=== PATIENT | male | born 1955 | race Caucasian/White ===

== ENCOUNTER 2021-02-16 15:14 | Outpatient (REF) | payer OTHER, SELFPAY ==
[2021-02-16 16:53] LABS: Creatinine Urine 127.59 mg/dL; Microalbumin Urine < 5.0 mg/L
[2021-02-16 16:58] LABS: Alanine Aminotransferase 42 U/L (0-40); Albumin Level 4.1 g/dL (3.5-5.0); Alkaline Phosphatase 88 U/L (39-117); Anion Gap 15 (12-20); Aspartate Amino Transferase 22 U/L (5-37); Bilirubin Total 0.6 mg/dL (0.0-1.0); Blood Urea Nitrogen 26 mg/dL (9-16); Calcium 8.7 mg/dL (8.4-10.2); Carbon Dioxide 24 mmol/L (22-29); Chloride 105 mmol/L (96-108); Estimated Glomerular Filt Rate > 60; Glucose Random 230 mg/dL (60-115); Sodium 140 mmol/L (135-145); Total Protein 6.7 g/dL (6.5-8.0)
== END 2021-02-16 15:15 | disposition home or self-care (01) ==
LOC: HO.HMGCLDS 15:14
PROVIDERS: PCP Family Medicine; Visit Provider Family Medicine
DX: E11.9 Type 2 diabetes mellitus without complications (principal)
CPT/HCPCS: 36415; 80053; 82043

== ENCOUNTER 2021-02-17 14:14 | Outpatient (REF) | payer OTHER, SELFPAY ==
--- NOTE | ~2021-02-17 | XR_ITS ---
EXAMINATION: XR CHEST CLINICAL INFORMATION: Other specified symptoms and signs involving the chest COMPARISON: Previous chest x-ray and chest CT January 2015 TECHNIQUE: 2 views of the chest were obtained. FINDINGS: The cardiac and mediastinal contours are stable. The lungs are clear. There is no pleural effusion or pneumothorax. Bony structures are unremarkable. XR/XR chest 2V IMPRESSION: No evidence for acute disease in the chest.
[2021-02-17 15:09] LABS: Cholesterol 127 mg/dL; HDL Cholesterol 29 mg/dL; LDL Cholesterol Calculated 44 mg/dl; Triglycerides 270 mg/dL
[2021-02-17 15:33] LABS: Prostate Specific Antigen Scr 1.36 ng/mL (<0.05-4.0)
[2021-02-18 08:07] LABS: LDL Cholesterol Direct 79 mg/dL (<100)
== END 2021-02-17 14:15 | disposition home or self-care (01) ==
LOC: HO.LAB 14:14
PROVIDERS: PCP Family Medicine; Visit Provider Family Medicine
DX: Z00.00 Encounter for general adult medical examination without abnormal findings (principal); Z12.5 Encounter for screening for malignant neoplasm of prostate; E11.9 Type 2 diabetes mellitus without complications; R09.89 Other specified symptoms and signs involving the circulatory and respiratory systems
CPT/HCPCS: 36415; 71046; 80061; 83721; 84153

== ENCOUNTER 2021-09-04 09:06 | Outpatient (REF) | payer OTHER, SELFPAY ==
[2021-09-04 12:22] LABS: Estimated Average Glucose 154 mg/dL
== END 2021-09-04 09:07 | disposition home or self-care (01) ==
LOC: HO.WFDLDS 09:06
PROVIDERS: Visit Provider Family Medicine
DX: R73.01 Impaired fasting glucose (principal)
CPT/HCPCS: 36415; 83036

== ENCOUNTER 2022-03-14 07:33 | Outpatient (REF) | payer MEDICARE, SELFPAY ==
[2022-03-14 08:55] LABS: Alanine Aminotransferase 34 U/L (0-40); Alkaline Phosphatase 89 U/L (39-117); Anion Gap 13 (12-20); Aspartate Amino Transferase 30 U/L (5-37); Bilirubin Total 0.7 mg/dL (0.0-1.0); Blood Urea Nitrogen 26 mg/dL (9-16); Calcium 9.3 mg/dL (8.4-10.2); Carbon Dioxide 26 mmol/L (22-29); Chloride 102 mmol/L (96-108); Cholesterol 128 mg/dL; Estimated Glomerular Filt Rate > 60; Glucose Fasting 171 mg/dL (60-99); HDL Cholesterol 27 mg/dL; LDL Cholesterol Calculated 75 mg/dl; Potassium 3.9 mmol/L (3.3-5.1); Sodium 137 mmol/L (135-145); Total Protein 6.5 g/dL (6.5-8.0); Triglycerides 133 mg/dL
[2022-03-14 09:15] LABS: Appearance Urine CLEAR; Color Urine YELLOW; Glucose Urine UA NEG (NEG); Leukocyte Esterase Urine NEG (NEG); Nitrite Urine NEG (NEG); Urine Blood NEG (NEG); Urine Ketones NEG (NEG); Urine Protein NEG (NEG-TRACE)
[2022-03-14 09:18] LABS: Prostate Specific Antigen Scr 1.99 ng/mL (<0.05-4.0)
[2022-03-14 09:50] LABS: Creatinine Urine 83.16 mg/dL; Microalbum/Creatinine Ratio Ur 10.8 ug/mg cr
== END 2022-03-14 07:34 | disposition home or self-care (01) ==
LOC: HO.LAB 07:33
PROVIDERS: PCP Family Medicine; Visit Provider Family Medicine
DX: Z00.00 Encounter for general adult medical examination without abnormal findings (principal); Z12.5 Encounter for screening for malignant neoplasm of prostate; I10 Essential (primary) hypertension
CPT/HCPCS: 36415; 80053; 80061; 81003; 82043; 84153; 84443

== ENCOUNTER 2022-04-16 07:08 | Outpatient (REF) | payer MEDICARE, SELFPAY ==
[2022-04-16 08:13] LABS: Cholesterol 162 mg/dL; HDL Cholesterol 32 mg/dL; LDL Cholesterol Calculated 96 mg/dl; Triglycerides 174 mg/dL
== END 2022-04-16 07:09 | disposition home or self-care (01) ==
LOC: HO.LAB 07:08
PROVIDERS: PCP Family Medicine; Visit Provider Family Medicine
DX: Z00.00 Encounter for general adult medical examination without abnormal findings (principal)
CPT/HCPCS: 36415; 80061

== ENCOUNTER 2022-07-23 08:18 | Outpatient (REF) | payer MEDICARE, SELFPAY ==
[2022-07-23 09:15] LABS: Alanine Aminotransferase 42 U/L (0-40); Albumin Level 4.2 g/dL (3.5-5.0); Alkaline Phosphatase 88 U/L (39-117); Anion Gap 14 (12-20); Aspartate Amino Transferase 23 U/L (5-37); Bilirubin Total 0.6 mg/dL (0.0-1.0); Blood Urea Nitrogen 24 mg/dL (9-16); Calcium 9.5 mg/dL (8.4-10.2); Carbon Dioxide 27 mmol/L (22-29); Chloride 103 mmol/L (96-108); Estimated Glomerular Filt Rate 58; Glucose Random 194 mg/dL (60-115); Potassium 4.3 mmol/L (3.3-5.1); Sodium 140 mmol/L (135-145); Total Protein 6.7 g/dL (6.5-8.0)
[2022-07-23 09:59] LABS: CDiff Gene PCR NEGATIVE (Negative)
[2022-07-23 11:23] LABS: Leukocytes Stool Qualitative NEGATIVE (NEGATIVE)
[2022-07-23 12:52] LABS: Adenovirus F 40/41 Not Detected (Not Detect.); Astrovirus Not Detected (Not Detect.); Campylobacter Not Detected (Not Detect.); Cryptosporidium Not Detected (Not Detect.); Cyclospora cayetanensis Not Detected (Not Detect.); E. coli EAEC Not Detected (Not Detect.); E. coli EPEC Not Detected (Not Detect.); E. coli ETEC Not Detected (Not Detect.); E. coli STEC Not Detected (Not Detect.); Entamoeba histolytica Not Detected (Not Detect.); Giardia lamblia Not Detected (Not Detect.); Norovirus GI/GII Not Detected (Not Detect.); Plesiomonas shigelloides Not Detected (Not Detect.); Rotavirus A Not Detected (Not Detect.); Salmonella Not Detected (Not Detect.); Sapovirus Not Detected (Not Detect.); Shigella sp./EIEC Not Detected (Not Detect.); Vibrio Not Detected (Not Detect.); Vibrio Cholerae Not Detected (Not Detect.); Yersinia enterocolitica Not Detected (Not Detect.)
== END 2022-07-23 08:19 | disposition home or self-care (01) ==
LOC: HO.LAB 08:18
PROVIDERS: Visit Provider Family Medicine
DX: Z00.00 Encounter for general adult medical examination without abnormal findings (principal); R19.7 Diarrhea, unspecified
CPT/HCPCS: 36415; 80053; 84443; 87177; 87209; 87493; 87507; 89055

== ENCOUNTER 2022-10-08 14:34 | Outpatient (REF) | payer MEDICARE, SELFPAY ==
[2022-10-08 15:31] LABS: Estimated Average Glucose 157 mg/dL; Hemoglobin A1c % 7.1 %
== END 2022-10-08 14:35 | disposition home or self-care (01) ==
LOC: HO.LAB 14:34
PROVIDERS: Visit Provider Family Medicine
DX: R73.01 Impaired fasting glucose (principal)
CPT/HCPCS: 36415; 83036

== ENCOUNTER 2023-01-09 12:02 | Outpatient (REF) | payer MEDICARE, SELFPAY ==
[2023-01-09 14:36] LABS: Alanine Aminotransferase 47 U/L (0-40); Albumin Level 4.1 g/dL (3.5-5.0); Alkaline Phosphatase 83 U/L (39-117); Anion Gap 14 (12-20); Aspartate Amino Transferase 28 U/L (5-37); Bilirubin Total 0.8 mg/dL (0.0-1.0); Blood Urea Nitrogen 26 mg/dL (9-16); Calcium 9.1 mg/dL (8.4-10.2); Carbon Dioxide 26 mmol/L (22-29); Chloride 107 mmol/L (96-108); Cholesterol 120 mg/dL; Estimated Glomerular Filt Rate > 60; Glucose Fasting 147 mg/dL (60-99); Glucose Random 147 mg/dL (60-115); HDL Cholesterol 31 mg/dL; LDL Cholesterol Calculated 60 mg/dl; Potassium 4.2 mmol/L (3.3-5.1); Sodium 143 mmol/L (135-145); Total Protein 6.4 g/dL (6.5-8.0); Triglycerides 145 mg/dL
[2023-01-11 08:03] LABS: LDL Cholesterol Direct 68 mg/dL (<100)
== END 2023-01-09 12:03 | disposition home or self-care (01) ==
LOC: HO.WFDLDS 12:02
PROVIDERS: Visit Provider Family Medicine
DX: Z00.00 Encounter for general adult medical examination without abnormal findings (principal); E78.5 Hyperlipidemia, unspecified
CPT/HCPCS: 36415; 80053; 80061; 83721

== ENCOUNTER 2023-06-21 13:36 | Outpatient (AMB) | payer MEDICARE, SELFPAY ==
[2023-06-21 13:42] VITALS: BP 130/62; PULSE 78; RESP 12; TEMP 36.3; O2SAT 96; BMI 32.9
--- NOTE | 2023-06-21 13:42 | A.OFFPC_ITS ---
Vital Signs 06/21/23 13:42 Height 6 ft 2 in Weight 256 lb 2 oz BMI 32.9 BP 130/62 Blood Pressure Location Lt brachial Position Sitting Respiration 12 Pulse 78 Pulse Source Pulse Oximeter Temp 97.3 F Temp Source Temporal Artery Scan Pulse Oximetry (%) 96 Oxygen Delivery Method Room Air Intake Visit Reasons: f/u hypertension - Microalbumin needed Intake Note: Patient states that the Chlorthalidone is now being taken as 1 whole pill due to taking half causing BP to go up. Curriculum Facilitator Required: No Accompanied by: Self / Same As Patient Allergies penicillin V Allergy (Severe, Verified 06/21/23 13:50) hives,anaphylaxis bee pollen [BEE STINGS] Allergy (Unknown, Verified 06/21/23 13:50) SWELLING Tobacco use date assessed: 05/15/23 Fall risk assessment: No Falls in past year Last assessed Fall Risk: 06/21/23 Dental Screening Dental Screen Date: 06/21/23 Did you have a dental visit in the last 12 months?: Yes Did you have a dental problem in the last 6 months where you did not have access to dental care?: No Was dental information given to patient?: Patient has dentist HPI f/u hypertension - Microalbumin needed HPI Details 68 y/o male presents to f/u hypertension. Had decreased his lisinopril from 40mg daily to 20mg daily as he had been having lo Had decreased his chlorthalidone from 25mg daily down to 12.5mg daily. Blood pressure today is 130/62. He denies any more low blood pressures/dizziness. [facility] Medical History No pertinent past medical history Surgical History History of appendectomy History of back surgery History of colectomy Social History Housing: House Patient Tobacco Use Status: Former Tobacco user Tobacco use type: Cigarette e-Cigarette/Vaping Use: Never Used Second Hand Smoke Exposure: No service: Yes Current occupational status: employed Current occupation: machine shop Current occupational exposures/hazards: No Cognitive needs: No Hearing needs: No Vision needs: No Questionnaire Thrive Questionnaire Date Thrive assessed: 01/04/22 GHAZALA-7 AMB Questionnaire GHAZALA-7 Date GHAZALA - 7 assessed: 01/04/22 Source: Developed by Drs. Brian Norman, Onelia Pritchard, Sanya Enamorado and colleagues, with an educational lucila from [employer]. Review of Systems Const Denies chills, Denies fatigue, Denies fever(s), Denies headache(s) and Denies weakness ENT Denies dizziness and Denies headache(s) Card Denies chest pain, Denies lightheadedness, Denies dyspnea and Denies other (Palpitations) Resp Denies cough, Denies dyspnea, Denies wheezing and Denies other ( shortness of breath) Musc Denies numbness and Denies tingling Neuro Denies dizziness, Denies headache(s), Denies numbness, Denies tingling, Denies paresthesias and Denies weakness Psych Denies anxiety and Denies depression Endo Denies fatigue Aller/Immun Denies wheezing Physical exam (Primary Care) Vital Signs: Last Vital Signs Temp 97.3 F 06/21/23 13:42 Pulse 78 06/21/23 13:42 Resp 12 06/21/23 13:42 BP 130/62 06/21/23 13:42 Pulse Ox 96 06/21/23 13:42 Oxygen Delivery Method Room Air 06/21/23 13:42 BMI result Body Mass Index 32.9 Tobacco/Smoking Status: Tobacco use Status Tobacco use date assessed 05/15/23 06/21/23 13:55 Patient Tobacco Use Status Former Tobacco user 06/21/23 13:55 Tobacco use type Cigarette 06/21/23 13:55 e-Cigarette/Vaping Use Never Used 06/21/23 13:55 Thrive Assessment: Date of Thrive Assessment Date Thrive assessed 01/04/22 06/21/23 13:55 Const General: no acute distress and well developed Nutritional Appearance: well nourished Orientation/consciousness: patient oriented x3 HENMT Head: Yes normocephalic and Yes atraumatic Eyes General: appearance normal, both eyes and all related structures Pupils: Equal, round and reactive pupils present EOM: EOMs intact bilaterally Resp Effort & Inspection: normal respiratory effort Auscultation: clear to auscultation bilaterally Cardio Rate: regular rate Rhythm: regular rhythm Heart sounds: S1 normal heart sound present, S2 normal heart sound present, no gallops, no murmurs and no rubs Neuro General: patient oriented x3 and gait normal Cranial nerves: Yes Equal, round and reactive pupils present Psych Affect: normal affect Assessment and Plan Assessment & Plan (1) Essential hypertension: Code(s): I10 - Essential (primary) hypertension Plan: Blood pressure is fairly well controlled. Goal is less than 130/80 for patient with coronary artery disease Continue current blood pressure medication regimen of metoprolol 50 mg daily lisinopril 20 mg daily (recently decreased from 40 mg daily) and chlorthalidone 25 mg daily. Chlorthalidone had been decreased to 12.5 mg daily but patient noted increases i n his blood pressure as well as lower extremity edema so went back to 25 mg daily. He will let me know if he is having any other blood pressure problems Due for microalbumin test which is ordered and he will give urine sample today. (2) CAD (coronary artery disease): Code(s): I25.10 - Atherosclerotic heart disease of [place] coronary artery without angina pectoris Plan: Stable Continue blood pressure control. Continue lipid control with atorvastatin Continue blood sugar control Orders: Orders Microalbumin, Random (w Creat) Today I10 - Essential (primary) hypertension Coding Level of Care Code Est Pt Level 3 (43112) Diagnoses Essential hypertension I10 CAD (coronary artery disease) I25.10
== END 2023-06-21 14:36 | disposition home or self-care (01) ==
PROVIDERS: PCP Family Medicine; Visit Provider Family Medicine
DX: I10 Essential (primary) hypertension (principal); I25.10 Atherosclerotic heart disease of native coronary artery without angina pectoris
CPT/HCPCS: 99213

== ENCOUNTER 2023-09-17 11:17 | Outpatient (AMB) | payer MEDICARE, SELFPAY ==
--- NOTE | 2023-09-17 11:25 | A.OFFPC_ITS ---
Vital Signs 09/17/23 11:29 Height 6 ft 2 in Weight 261 lb BMI 33.5 BP 124/72 Blood Pressure Location Lt brachial Position Sitting Pulse 87 Pulse Source Pulse Oximeter Pulse Oximetry (%) 96 Oxygen Delivery Method Room Air Intake Visit Reasons: f/u hypertension, diabetes and chronic conditions Intake Note: Patient is here to follow up on hypertension, diabetes, and chronic condtions. Patient would like to talk about sore left shoulder for 2 months. Allergies penicillin V Allergy (Severe, Verified 09/17/23 11:32) hives,anaphylaxis bee pollen [BEE STINGS] Allergy (Unknown, Verified 09/17/23 11:32) SWELLING Tobacco use date assessed: 09/17/23 Fall risk assessment: No Falls in past year Last assessed Fall Risk: 09/17/23 Dental Screening Dental Screen Date: 09/17/23 Did you have a dental visit in the last 12 months?: Yes Did you have a dental problem in the last 6 months where you did not have access to dental care?: No Was dental information given to patient?: Patient has dentist HPI f/u hypertension, diabetes and chronic conditions HPI Details 68 y/o male presents to f/u hypertension , diabetes and chronic conditions. A1c today 6.2% which is improved from 6.4% on 05/15/23. Blood pressure today 124/72. He is on lisinopril 20mg and metoprolol 50mg daily. Pt reports L shoulder pain x2 months. [facility] Medical History No pertinent past medical history Surgical History History of colectomy History of appendectomy History of back surgery Social History Housing: House Patient Tobacco Use Status: Former Tobacco user Tobacco use type: Cigarette e-Cigarette/Vaping Use: Never Used Second Hand Smoke Exposure: No service: Yes Current occupational status: employed Current occupation: machine shop Current occupational exposures/hazards: No Cognitive needs: No Hearing needs: No Vision needs: No Questionnaire Thrive Questionnaire Date Thrive assessed: 01/04/22 GHAZALA-7 AMB Questionnaire GHAZALA-7 Date GHAZALA - 7 assessed: 01/04/22 Source: Developed by Drs. Brian Norman, Onelia Pritchard, Sanya Enamorado and colleagues, with an educational lucila from [employer]. Physical exam (Primary Care) Vital Signs: Last Vital Signs Pulse 87 09/17/23 11:29 BP 124/72 09/17/23 11:29 Pulse Ox 96 09/17/23 11:29 Oxygen Delivery Method Room Air 09/17/23 11:29 BMI result Body Mass Index 33.5 Tobacco/Smoking Status: Tobacco use Status Tobacco use date assessed 09/17/23 09/17/23 11:34 Patient Tobacco Use Status Former Tobacco user 09/17/23 11:25 Tobacco use type Cigarette 09/17/23 11:25 e-Cigarette/Vaping Use Never Used 09/17/23 11:25 Thrive Assessment: Date of Thrive Assessment Date Thrive assessed 01/04/22 09/17/23 11:25 Results AMB Hemoglobin A1c AMB Hemoglobin A1c 6.2 % Last Edit by Jenni Koehler CMA on 09/17/23 11:50 Results Reviewed Results Reviewed: Laboratory Last Values Hgb A1c (Clinic) 6.2 % (4.0-6.0) H 09/17/23 11:46 Assessment and Plan Assessment & Plan (1) Essential hypertension: Code(s): I10 - Essential (primary) hypertension Plan: Blood?pressure?is?well?controlled.??Goal?is?less?than?130/80 Continue?current?medication?regimen (2) Diabetes: Code(s): E11.9 - Type 2 diabetes mellitus without complications Plan: A1c?is?at?goal?is?less?than?7.0% Continue?current?medication?regimen (3) History of smoking: Code(s): Z87.891 - Personal history of nicotine dependence Plan: Patient?inquires?about?low- dose?CT?scanning?but?he?quit?smoking?greater?than?15?years?ago Will?check?chest?x-ray.??1211 (4) CAD (coronary artery disease): Code(s): I25.10 - Atherosclerotic heart disease of [place] coronary artery without angina pectoris Plan: Stable (5) Left shoulder pain: Code(s): M25.512 - Pain in left shoulder Plan: Left?biceps?pain?and?pain?in?bicipital?groove Likely?strain?of?left?biceps?and?biceps?tendon Referred?to?physical?therapy If?not?improving?will?refer?to?ortho Orders: Orders PT Evaluation and Treatment Today M25.512 - Pain in left shoulder AMB Hemoglobin A1c Today Z13.9 - Encounter for screening, unspecified XR chest 2V Today Z87.891 - Personal history of nicotine dependence Medications: Refilled atorvastatin 80 mg PO DAILY 90 days 90 tabs 2RF E78.5 - Hyperlipidemia, unspecified tamsulosin 0.8 mg (2 x 0.4 mg) PO DAILY 90 days 180 caps 3RF metformin 1,000 mg PO BID 90 days 180 tabs 2RF E78.5 - Hyperlipidemia, unspecified dulaglutide (Trulicity) 0.75 mg (0.5 mL) subcut QWEEK 28 days 2 mL 4RF Coding Level of Care Code Est Pt Level 4 (66786) Diagnoses Essential hypertension I10 Diabetes E11.9 History of smoking Z87.891 CAD (coronary artery disease) I25.10 Left shoulder pain M25.512
[2023-09-17 11:29] VITALS: BP 124/72; PULSE 87; O2SAT 96; BMI 33.5
== END 2023-09-17 12:56 | disposition home or self-care (01) ==
PROVIDERS: PCP Family Medicine; Visit Provider Family Medicine
DX: I10 Essential (primary) hypertension (principal); E11.9 Type 2 diabetes mellitus without complications; Z87.891 Personal history of nicotine dependence; I25.10 Atherosclerotic heart disease of native coronary artery without angina pectoris; M25.512 Pain in left shoulder
CPT/HCPCS: 83036; 99214

== ENCOUNTER 2023-10-31 07:25 | Outpatient (REF) | payer MEDICARE, SELFPAY ==
[2023-10-31 12:23] LABS: Microalbum/Creatinine Ratio Ur 7.1 ug/mg cr (<30)
== END 2023-10-31 07:26 | disposition home or self-care (01) ==
LOC: HO.WFDLDS 07:25
PROVIDERS: Visit Provider Family Medicine
DX: I10 Essential (primary) hypertension (principal)
CPT/HCPCS: 82043; 82570

== ENCOUNTER 2023-11-07 10:39 | Outpatient (RCR) | payer MEDICARE, SELFPAY ==
[2023-11-07 11:05] VITALS: BP 130/70; PULSE 82; O2SAT 96
== END 2023-12-24 13:37 | disposition home or self-care (01) ==
LOC: HO.PTWFD 10:39
PROVIDERS: PCP Family Medicine; Visit Provider Family Medicine
DX: M25.512 Pain in left shoulder (principal)
CPT/HCPCS: 97110; 97140; 97162; 97535

== ENCOUNTER 2023-12-17 14:42 | Outpatient (AMB) | payer BC, SELFPAY ==
[2023-12-17 14:46] VITALS: BP 122/66; PULSE 72; O2SAT 98; BMI 33.6
--- NOTE | 2023-12-17 14:46 | MHC.PC.OV ---
Vital Signs 12/17/23 14:46 Height 6 ft 2 in Weight 262 lb BMI 33.6 BP 122/66 Blood Pressure Location Lt brachial Position Sitting Pulse 72 Pulse Source Pulse Oximeter Pulse Oximetry (%) 98 Oxygen Delivery Method Room Air Intake Visit Reasons: f/u hypertension, diabetes Intake Note: Patient is here to follow up on hypertension and diabetes. Needs refill on chlorthialidone, omeprazole, and metoprolol. Allergies penicillin V Allergy (Severe, Verified 09/17/23 11:32) hives,anaphylaxis bee pollen [BEE STINGS] Allergy (Unknown, Verified 09/17/23 11:32) SWELLING Tobacco use date assessed: 09/17/23 Fall risk assessment: No Falls in past year Last assessed Fall Risk: 12/17/23 Dental Screening Dental Screen Date: 12/17/23 Did you have a dental visit in the last 12 months?: Yes Did you have a dental problem in the last 6 months where you did not have access to dental care?: No Was dental information given to patient?: Patient has dentist HPI f/u hypertension, diabetes HPI Details 68 y/o male presents to f/u diabetes and hypertension. Blood pressure today 122/66. She is on chlorthalidone 12.5mg, lisinopril 20mg and metoprolol 50mg daily. Last A1c 09/17/23 6.2%. He is on metformin 1000mg b.i.d, glipizide 5mg and Trulicity 0.75mg. A1c today 12/17/23 is 6.3%. [facility] Medical History No pertinent past medical history Surgical History History of colectomy History of appendectomy History of back surgery Social History Housing: House Patient Tobacco Use Status: Former Tobacco user Tobacco use type: Cigarette e-Cigarette/Vaping Use: Never Used Second Hand Smoke Exposure: No service: Yes Current occupational status: employed Current occupation: machine shop Current occupational exposures/hazards: No Cognitive needs: No Hearing needs: No Vision needs: No Questionnaire PHQ-9 Over the last 2 weeks, how often have you been bothered by any of the following problems? 1. Little interest or pleasure in doing things: not at all 2. Feeling down, depressed, or hopeless: not at all 3. Trouble falling or staying asleep, or sleeping too much: not at all 4. Feeling tired or having little energy: not at all 5. Poor appetite or overeating: not at all 6. Feeling bad about yourself - or that you are a failure or have let yourself or your family down: not at all 7. Trouble concentrating on things, such as reading the newspaper or watching television: not at all 8. Moving or speaking so slowly that other people could have noticed. Or the opposite - being so fidgety or restless that you have been moving around a lot more than usual: not at all 9. Thoughts that you would be better off or of hurting yourself in some way: not at all Total score: 0 Source: Developed by Drs. Brian Norman, Onelia Pritchard, Sanya Enamorado and colleagues, with an educational lucila from [employer]. Thrive Questionnaire Date Thrive assessed: 12/17/23 I am a: Patient What is your living situation today?: I have a steady place to live Within the past 12 months, did the food you bought not last and you didn't have the money to get more?: Never true Within the past 12 months, did you worry whether your food would run out before you got money to buy more?: Never true Do you have trouble paying for medicines?: No Do you have trouble getting transportation to medical appointments?: No Do you have trouble paying your heating and electricity bill?: No Do you have trouble taking care of your child, family member or friend?: No Do you have trouble with day-to-day activities such as bathing, preparing meals, shopping, managing finances, etc.?: No Are you currently unemployed and looking for a job?: No Are you interested in more education?: No THRIVE Score: 0 AUDIT C Alcohol Use Questionnaire (AUDIT-C) 1. How often do you have a drink containing alcohol?: 2-4 times a month 2. How many drinks containing alcohol do you have on a typical day when you are drinking?: 1 or 2 3. How often do you have six or more drinks on one occasion?: Never Total Score: 2 GHAZALA-7 AMB Questionnaire GHAZALA-7 Date GHAZALA - 7 assessed: 12/17/23 Feeling nervous, anxious, or on edge: 0 = Not at all Not being able to stop or control worryin = Not at all Worrying too much about different things: 0 = Not at all Trouble relaxin = Not at all Being so restless that it is hard to sit still: 0 = Not at all Becoming easily annoyed or irritable: 0 = Not at all Feeling afraid as if something awful might happen: 0 = Not at all Total GHAZALA-7 score (0-4 normal; 5-9 mild; 10-14 moderate; 15-21 severe): 0 Source: Developed by Drs. Brian Norman, Onelia Pritchard, Sanya Enamorado and colleagues, with an educational lucila from [email or web address]. Review of Systems Const Denies chills, Denies fatigue, Denies fever(s), Denies headache(s) and Denies weakness ENT Denies dizziness and Denies headache(s) Card Denies chest pain, Denies lightheadedness, Denies dyspnea and Denies other (Palpitations) Resp Denies cough, Denies dyspnea, Denies wheezing and Denies other ( shortness of breath) Musc Denies numbness and Denies tingling Neuro Denies dizziness, Denies headache(s), Denies numbness, Denies tingling, Denies paresthesias and Denies weakness Psych Denies anxiety and Denies depression Endo Denies fatigue Aller/Immun Denies wheezing Physical exam (Primary Care) Vital Signs: Last Vital Signs Pulse 72 12/17/23 14:46 BP 122/66 12/17/23 14:46 Pulse Ox 98 12/17/23 14:46 Oxygen Delivery Method Room Air 12/17/23 14:46 BMI result Body Mass Index 33.6 Tobacco/Smoking Status: Tobacco use Status Tobacco use date assessed 09/17/23 12/17/23 14:48 Patient Tobacco Use Status Former Tobacco user 12/17/23 14:48 Tobacco use type Cigarette 12/17/23 14:48 e-Cigarette/Vaping Use Never Used 12/17/23 14:48 PHQ-9: PHQ-9 Score PHQ-9: Total score 0 12/17/23 14:54 Thrive Assessment: Date of Thrive Assessment Date Thrive assessed 12/17/23 12/17/23 14:54 Const General: no acute distress and well developed Nutritional Appearance: well nourished Orientation/consciousness: patient oriented x3 HENMT Head: Yes normocephalic and Yes atraumatic Eyes General: appearance normal, both eyes and all related structures Pupils: Equal, round and reactive pupils present EOM: EOMs intact bilaterally Resp Effort & Inspection: normal respiratory effort Auscultation: clear to auscultation bilaterally Cardio Rate: regular rate Rhythm: regular rhythm Heart sounds: S1 normal heart sound present, S2 normal heart sound present, no gallops, no murmurs and no rubs Neuro General: patient oriented x3 and gait normal Cranial nerves: Yes Equal, round and reactive pupils present Psych Affect: normal affect Results AMB Hemoglobin A1c AMB Hemoglobin A1c 6.3 % Last Edit by Jenni Koehler CMA on 12/17/23 15:08 Assessment and Plan Assessment & Plan (1) Essential hypertension: Code(s): I10 - Essential (primary) hypertension Plan: Blood?pressure?is?well?controlled.??Goal?is?less?than?130/80 Continue?current?medication?regimen (2) Diabetes: Code(s): E11.9 - Type 2 diabetes mellitus without complications Plan: A1c?6.3%.??Goal?is?less?than?7.0%.??Good?control Continue?current?medication?regimen Encouraged?healthy?diabetic?diet?and?active?lifestyle?with?plenty?of?exercise Eye?exam?in?September?showed?no?diabetic?retinopathy.??He?is?up-to-date. Orders: Orders AMB Hemoglobin A1c Today Z13.9 - Encounter for screening, unspecified Medications: Changed From chlorthalidone 12.5 mg PO DAILY To chlorthalidone 12.5 mg (1/2 x 25 mg) PO DAILY 90 days 45 tabs 3RF Refilled metoprolol tartrate 50 mg PO DAILY 90 days 90 tabs 3RF E78.5 - Hyperlipidemia, unspecified omeprazole 20 mg PO DAILY 90 days 90 caps 3RF Coding Level of Care Code Est Pt Level 3 (82722) Diagnoses Essential hypertension I10 Diabetes E11.9
== END 2023-12-17 15:15 | disposition home or self-care (01) ==
PROVIDERS: PCP Family Medicine; Visit Provider Family Medicine
DX: I10 Essential (primary) hypertension (principal); E11.9 Type 2 diabetes mellitus without complications
CPT/HCPCS: 83036; 99213

== ENCOUNTER 2024-04-08 13:33 | Outpatient (AMB) | payer BC, SELFPAY ==
[2024-04-08 13:41] VITALS: BP 138/82; PULSE 76; O2SAT 95; BMI 33.5
--- NOTE | 2024-04-08 13:41 | A.OFFPC_ITS ---
Vital Signs 04/08/24 13:41 04/08/24 14:13 Height 6 ft 2 in Weight 261 lb BMI 33.5 BP 138/82 Blood Pressure Location Lt brachial Position Sitting Pulse 76 Pulse Source Pulse Oximeter Pulse Oximetry (%) 95 97 Oxygen Delivery Method Room Air Room Air Intake Visit Reasons: chest pain/discomfort Intake Note: Patient is here with chest pain and discomfort, states it started on Saturday with shooting pain through his chest. Allergies penicillin V Allergy (Severe, Verified 04/08/24 13:43) hives,anaphylaxis bee pollen [BEE STINGS] Allergy (Unknown, Verified 04/08/24 13:43) SWELLING Tobacco use date assessed: 04/08/24 Fall risk assessment: No Falls in past year Last assessed Fall Risk: 04/08/24 Dental Screening Dental Screen Date: 12/17/23 HPI chest pain/discomfort HPI Details 69 y/o male presents today with complain ts of chest pain/chest discomfort. Pt reports chest pain since Saturday. He describes a shooting pain in his chest from R to the L. Denies any chest pain on exertion. He denies any shortness of breath/nausea. He states pain comes out of nowhere. Does have hx of CAD and states he does have a stent. [facility]LY [facility], [facility] Medical History No pertinent past medical history Surgical History History of colectomy History of appendectomy History of back surgery Social History Housing: House Patient Tobacco Use Status: Former Tobacco user Tobacco use type: Cigarette e-Cigarette/Vaping Use: Never Used Second Hand Smoke Exposure: No service: Yes Current occupational status: employed Current occupation: machine shop Current occupational exposures/hazards: No Cognitive needs: No Hearing needs: No Vision needs: No Questionnaire Thrive Questionnaire Date Thrive assessed: 12/17/23 GHAZALA-7 AMB Questionnaire GHAZALA-7 Date GHAZALA - 7 assessed: 12/17/23 Source: Developed by Drs. Brian Norman, Onelia Pritchard, Sanya Enamorado and colleagues, with an educational lucila from [employer]. Review of Systems Const Denies chills, Denies fatigue, Denies fever(s), Denies headache(s) and Denies weakness ENT Denies dizziness and Denies headache(s) Card Denies dyspnea Resp Denies cough, Denies dyspnea, Denies wheezing and Denies other (shortness of breath) Musc Denies numbness and Denies tingling Neuro Denies dizziness, Denies headache(s), Denies numbness, Denies tingling and Denies weakness Psych Denies anxiety and Denies depression Endo Denies fatigue Aller/Immun Denies wheezing Physical exam (Primary Care) Vital Signs: Last Vital Signs Pulse 76 04/08/24 13:41 BP 138/82 04/08/24 13:41 Pulse Ox 95 04/08/24 13:41 Oxygen Delivery Method Room Air 04/08/24 13:41 BMI result Body Mass Index 33.5 Tobacco/Smoking Status: Tobacco use Status Tobacco use date assessed 04/08/24 04/08/24 13:49 Patient Tobacco Use Status Former Tobacco user 04/08/24 13:49 Tobacco use type Cigarette 04/08/24 13:49 e-Cigarette/Vaping Use Never Used 04/08/24 13:49 Thrive Assessment: Date of Thrive Assessment Date Thrive assessed 12/17/23 04/08/24 13:49 Const General: well developed; No acute distress Nutritional Appearance: well nourished Orientation/consciousness: patient oriented x3 [facility] Head: Yes normocephalic and Yes atraumatic Eyes General: appearance normal, both eyes and all related structures Pupils: Equal, round and reactive pupils present EOM: EOMs intact bilaterally Resp Effort & Inspection: normal respiratory effort Auscultation: not clear to auscultation bilaterally Cardio Rate: regular rate Rhythm: regular rhythm Heart sounds: S1 normal heart sound present, S2 normal heart sound present, no gallops, no murmurs and no rubs Neuro General: patient oriented x3 and gait normal Cranial nerves: Yes Equal, round and reactive pupils present Psych Affect: normal affect Assessment and Plan Assessment & Plan (1) Chest pain: Code(s): R07.9 - Chest pain, unspecified Plan: 69-year-old?male?with?history?of?coronary?artery?disease?presents?with 3?discrete?episodes?of?shooting?lower?chest?pain. Patient?says?it?felt?like?a?lightening?bolt?and?was?very?brief.??Origin?at?right ?lower?chest?and projecting?to?left?lower?chest?straight?across?the?epigastrium?and?costal?margin s. Not?strongly?associated?with?any?exertion?at?the?time?of?the?pain.??No?shortness ?of?breath,?sweating,?dizziness?or?nausea. For?the?1st?2?episodes,?patient?notes?that?he had eaten?and?walked?about?30- 60?minutes?prior?to?the?occurrence but?neither?was?true?for?the?3rd?episode. EKG?today?shows?sinus?rhythm?with?first-degree?AV?block;?MS?equals?234msec, normal?axis,?no?hypertrophy,?no?ST-T-wave?changes. Oxygen?saturation?95%?and?97%. On?auscultation?he?has?some?wheezing?and groans in?lower?lung?[place],?le ft?worse?than?right. Unclear?cause. Etiologies?include?cholecystitis,?pneumothorax, nerve?impingement, atypical?chest?pain, pleural?effusion,?pericardial?effusion, angina?with?atypical?presentation?though?this?seems?unlikely, PE?though?this?seems?of?low?likelihood?as?well?as?pain?is?fleeting. Will?check?a?chest?x-ray Check?labs?including CMP,?CBC,?troponin Will?follow-up?with?patient?by?teleme dicine?on?Saturday.??Advised?him?to?go?to?the?ED?if?he?is?having?pain?lasting?long er?than?a?few?minutes?despite?resting. (2) CAD (coronary artery disease): Code(s): I25.10 - Atherosclerotic heart disease of [place] coronary artery without angina pectoris Plan: As above Orders: Orders AMB EKG-In Office Today I25.10 - Atherosclerotic heart disease of [place] coronary artery without angina pectoris, R07.9 - Chest pain, unspecified XR chest 2V Today R07.9 - Chest pain, unspecified Troponin-I High Sensitivity Today R07.9 - Chest pain, unspecified Comprehensive Met. Panel Today R07.9 - Chest pain, unspecified Erythrocyte Sedimentation Rate Today R07.9 - Chest pain, unspecified Complete Blood Count Auto Diff Today R07.9 - Chest pain, unspecified, Z00.00 - Encounter for general adult medical examination without abnormal findings Lipase Today R07.9 - Chest pain, unspecified Coding Level of Care Code Est Pt Level 3 (40802) Diagnoses Chest pain R07.9 CAD (coronary artery disease) I25.10
[2024-04-08 14:13] VITALS: O2SAT 97
== END 2024-04-08 16:14 | disposition home or self-care (01) ==
PROVIDERS: PCP Family Medicine; Visit Provider Family Medicine
DX: R07.9 Chest pain, unspecified (principal); I25.10 Atherosclerotic heart disease of native coronary artery without angina pectoris
CPT/HCPCS: 93000; 99214

== ENCOUNTER 2024-04-08 15:09 | Outpatient (REF) | payer MEDICARE, SELFPAY ==
--- NOTE | ~2024-04-08 | XR_ITS ---
EXAMINATION: XR CHEST CLINICAL INFORMATION: Chest pain COMPARISON: 02/17/2021 TECHNIQUE: Chest PA and lateral views FINDINGS: There is linear atelectasis at the left lung base. The rest of lungs are clear. Cardiomediastinal silhouette is normal. There is no pleural effusion. XR/XR chest 2V IMPRESSION: Left lower lobe atelectasis
[2024-04-08 15:24] LABS: MANUAL DIFF FLAG NO
[2024-04-08 16:23] LABS: Basophils Absolute Auto 0.1 X10*3/uL (0.0-0.2); Basophils Percent Auto 0.9 % (0-2); Eosinophils Absolute Auto 0.3 X10*3/uL (0.0-0.4); Eosinophils Percent Auto 4.4 % (0-4); Hematocrit 42.9 % (42.0-52.0); Hemoglobin 13.8 g/dl (14.0-18.0); Imm Gran Abs Auto 0.03 X10*3/uL (0.00-0.03); Imm Gran Pct Auto 0.5 % (0.0-0.4); Lymphocytes Absolute Auto 1.3 X10*3/uL (1.2-4.9); Mean Corpuscular HGB Conc 32.2 g/dl (31.0-36.0); Mean Platelet Volume 12.6 fL (9.4-12.4); Monocytes Absolute Auto 0.4 X10*3/uL (0.1-1.2); Monocytes Percent Auto 6.5 % (2-11); Neutrophils Absolute Auto 4.2 x10*3/uL (2.0-8.3); Neutrophils Percent Auto 66.7 % (45-73); Platelet Count 136 X10*3/uL (160-400); Red Blood Count 5.11 X10*6/uL (4.60-5.80); Red Cell Distribution Width 14.5 % (11.0-16.0); White Blood Count 6.3 X10*3/uL (4.8-10.8)
[2024-04-08 17:23] LABS: Erythrocyte Sedimentation Rate 2 MM/HR (0-15)
[2024-04-08 17:46] LABS: Troponin-I High Sensitivity < 2.7 ng/L (<3.5-35.0)
[2024-04-08 17:47] LABS: Alanine Aminotransferase 33 U/L (0-40); Alkaline Phosphatase 104 U/L (39-117); Anion Gap 14 (12-20); Aspartate Amino Transferase 26 U/L (5-37); Bilirubin Total 0.6 mg/dL (0.0-1.0); Blood Urea Nitrogen 23 mg/dL (9-16); Calcium 9.4 mg/dL (8.4-10.2); Carbon Dioxide 24 mmol/L (22-29); Chloride 105 mmol/L (96-108); Cholesterol 105 mg/dL (<200); Estimated Glomerular Filt Rate 58; Glucose Random 124 mg/dL (60-115); HDL Cholesterol 29 mg/dL (>40); LDL Cholesterol Calculated 43 mg/dL (<100); Lipase 42 U/L (8-78); Potassium 4.1 mmol/L (3.3-5.1); Sodium 139 mmol/L (135-145); Total Protein 6.8 g/dL (6.5-8.0); Triglycerides 166 mg/dL (<150)
[2024-04-08 17:52] LABS: Appearance Urine Clear; Color Urine Yellow; Glucose Urine UA Negative (Negative); Leukocyte Esterase Urine Negative (Negative); Nitrite Urine Negative (Negative); Specific Gravity - Urine 1.015 (1.005-1.025); Urine Blood Negative (Negative); Urine Ketones Negative (Negative); Urine Protein Negative (Neg-Trace)
[2024-04-08 17:58] LABS: Prostate Specific Antigen Scr 2.36 ng/mL (<0.05-4.0)
[2024-04-08 18:03] LABS: TSH reflex Free T4 0.61 uIU/mL (0.32-4.0)
[2024-04-08 18:25] LABS: Creatinine Urine 97.48 mg/dL; Microalbum/Creatinine Ratio Ur 6.1 ug/mg cr (<30)
== END 2024-04-08 15:10 | disposition home or self-care (01) ==
LOC: HO.LAB 15:09
PROVIDERS: PCP Family Medicine; Visit Provider Family Medicine
DX: Z00.00 Encounter for general adult medical examination without abnormal findings (principal); R07.9 Chest pain, unspecified; I10 Essential (primary) hypertension; Z12.5 Encounter for screening for malignant neoplasm of prostate
CPT/HCPCS: 36415; 71046; 80053; 80061; 81003; 82043; 82570; 83690; 84153; 84443; 84484; 85025; 85652

== ENCOUNTER 2024-04-15 14:09 | Outpatient (AMB) | payer MEDICARE, SELFPAY ==
--- NOTE | 2024-04-15 13:23 | MHC.PC.OV ---
Intake Visit Reasons: Chest pain Intake Note: Patient is following up on x-ray for chest pain. Patient needs refill on Lisinopril.. Allergies penicillin V Allergy (Severe, Verified 04/15/24 13:25) hives,anaphylaxis bee pollen [BEE STINGS] Allergy (Unknown, Verified 04/15/24 13:25) SWELLING Tobacco use date assessed: 04/15/24 Fall risk assessment: No Falls in past year Last assessed Fall Risk: 04/15/24 Dental Screening Dental Screen Date: 12/17/23 HPI Chest pain HPI Details Telemedicine?appointment?to?follow-up?chest?discomfort. He?had?had?right?lower?chest?discomfort?which?radiated?through?epigastrium?into?left?lower?chest Episodes?are?fleeting?and?only?lasting?a?brief?moment Not?associated?with?exertion.??He?does?have?a?history?of?coronary?artery?disease. EKG?at?prior?visit?was?okay?and?troponin?level?and?other?lab?work?were?negative. Chest?x-ray?shows?atelectasis?at?left?lower?lobe PFSH Medical History No pertinent past medical history Surgical History History of colectomy History of appendectomy History of back surgery Social History Housing: House Patient Tobacco Use Status: Former Tobacco user Tobacco use type: Cigarette e-Cigarette/Vaping Use: Never Used Second Hand Smoke Exposure: No service: Yes Current occupational status: employed Current occupation: machine shop Current occupational exposures/hazards: No Cognitive needs: No Hearing needs: No Vision needs: No Questionnaire Thrive Questionnaire Date Thrive assessed: 12/17/23 GHAZALA-7 AMB Questionnaire GHAZALA-7 Date GHAZALA - 7 assessed: 12/17/23 Source: Developed by Drs. Brian Norman, Onelia Pritchard, Sanya Enamorado and colleagues, with an educational lucila from [employer]. Review of Systems Const Denies chills, Denies fatigue, Denies fever(s), Denies headache(s) and Denies weakness ENT Denies dizziness and Denies headache(s) Card Denies lightheadedness, Denies dyspnea and Denies other (Palpitations) Resp Details: See?HPI Denies cough, Denies dyspnea, Denies wheezing and Denies other ( shortness of breath) Musc Denies numbness and Denies tingling Neuro Denies dizziness, Denies headache(s), Denies numbness, Denies tingling, Denies paresthesias and Denies weakness Psych Denies anxiety and Denies depression Endo Denies fatigue Aller/Immun Denies wheezing Physical exam (Primary Care) Tobacco/Smoking Status: Tobacco use Status Tobacco use date assessed 04/15/24 04/15/24 13:27 Patient Tobacco Use Status Former Tobacco user 04/15/24 13:27 Tobacco use type Cigarette 04/15/24 13:27 e-Cigarette/Vaping Use Never Used 04/15/24 13:27 Thrive Assessment: Date of Thrive Assessment Date Thrive assessed 12/17/23 04/15/24 13:27 Telehealth Telehealth Telehealth Platform: Telephone Location of provider rendering services: practice address Location of patient: address on file Patient Identification confirmed using: Name, : Yes Telehealth method: voice only Patient verbally consented to treatment: Yes Patient verbally consented to billing insurance company: Yes Patient informed of any privacy concerns related to visit: Yes Minutes spent on Phone/Video with Pt.: 5 Assessment and Plan Assessment & Plan (1) Chest pain: Code(s): R07.9 - Chest pain, unspecified Plan: Low?right?to?left-sided?chest?pain?not?associated?with?exertion?and?fleeting?in?duration. This?has?not?changed?for?better?or?worse. Labs?and?troponin?were?unremarkable Chest?x-ray?showed?some?atelectasis. I?had?heard?adventitious?sounds. At?this?point,?will?send?him?a?script?for?a?Z-[place] for?empiric?treatment?of?possible?occult?pneumonia. He?will?call?or?return?to?office?if?not?improving.??At?that?point,?would?refer?him?to?pulmonology Medications: Refilled lisinopril 20 mg PO DAILY 90 days 90 tabs 3RF Coding Level of Care Code Tele Est Pt Level 2 (87874) Diagnoses Chest pain R07.9
== END 2024-04-15 16:51 | disposition home or self-care (01) ==
LOC: HO.HMGFM 14:09
PROVIDERS: PCP Family Medicine; Visit Provider Family Medicine
DX: R07.9 Chest pain, unspecified (principal)
CPT/HCPCS: 99441

== ENCOUNTER 2024-04-20 10:46 | Emergency (ER) | payer MEDICARE, SELFPAY ==
--- NOTE | ~2024-04-20 | US_ITS ---
EXAMINATION: US VENOUS ULTRASOUND WITH DOPPLER LOWER EXTREMITY, RIGHT CLINICAL INFORMATION: Erythema, pain COMPARISON: None available. TECHNIQUE: Ultrasound of the deep veins is performed from the hip to the calf with compression sonography and color and pulse Doppler assessment. Spectral analysis with color-flow imaging is performed. FINDINGS: There is normal venous compression and respiratory variation and augmented flow. The visualized common femoral vein, superficial femoral vein, profunda femoral vein, popliteal vein, and the trifurcation region shows no evidence of deep venous thrombosis. There is no significant popliteal fossa cyst. If the patient's symptoms persist, followup ultrasound in 5 days 7 days might be of value to exclude proximal propagation from a non-visualized calf vein. Prominent right groin lymph nodes. US/US venous duplex LE RT IMPRESSION: No DVT demonstrated in the right lower extremity.
[2024-04-20 11:17] VITALS: BP 123/75; PULSE 72; RESP 18; TEMP 37.1; O2SAT 95; BMI 32.1
--- NOTE | 2024-04-20 11:17 | ED_ITS ---
HPI - General Adult General Chief complaint: Skin/Abscess/Foreign Body Stated complaint: R leg insect bite sent by urgent care Time Seen by Provider: 04/20/24 12:25 Source: patient and family Mode of arrival: ambulatory Limitations: no limitations History of Present Illness ED Provider: Dr. Hawthorne HPI narrative: patient noticed over the past couple of days increased leg swelling, redness and discomfort. Yesterday he noticed chills denies fever. Today he notice redness in his right groin. Onset (ago): day(s) Location: lower extremity Severity: moderate Related Data Previous Rx's ?Medication ?Instructions ?Recorded atorvastatin 80 mg tablet 80 mg PO DAILY 90 days #90 tabs 09/17/23 tamsulosin 0.4 mg capsule 0.8 mg (2 x 0.4 mg) PO DAILY 90 09/17/23 days #180 caps sildenafil 100 mg tablet 100 mg PO DAILY PRN sexual 11/11/23 activity 30 days #4 tabs chlorthalidone 25 mg tablet 12.5 mg (1/2 x 25 mg) PO DAILY 90 12/17/23 days #45 tabs metoprolol tartrate 50 mg tablet 50 mg PO DAILY 90 days #90 tabs 12/17/23 omeprazole 20 mg capsule,delayed 20 mg PO DAILY 90 days #90 caps 12/17/23 release ibuprofen 800 mg tablet 800 mg PO Q8H PRN pain 30 days #90 01/29/24 tabs metformin 1,000 mg tablet 1,000 mg PO BID 90 days #180 tabs 01/29/24 glipizide 5 mg tablet, extended 5 mg PO DAILY 90 days #90 tabs 02/18/24 release 24 hr dulaglutide 0.75 mg/0.5 mL 0.75 mg (0.5 mL) subcut QWEEK 28 03/02/24 subcutaneous pen injector days #2 mL (Trulicity) azithromycin 250 mg tablet See Rx Instructions PO .COMPLEX 5 04/15/24 (Zithromax Z-[place]) days #6 tabs lisinopril 20 mg tablet 20 mg PO DAILY 90 days #90 tabs 04/15/24 cephalexin 500 mg capsule 500 mg PO Q6H 10 days #40 caps 04/20/24 doxycycline monohydrate 100 mg 100 mg PO BID #20 caps 04/20/24 capsule Allergies Allergy/AdvReac Type Severity Reaction Status Date / Time penicillin V Allergy Severe hives,anaph Verified 04/20/24 11:19 ylaxis bee pollen [BEE STINGS] Allergy Unknown SWELLING Verified 04/20/24 11:19 Review of Systems 2 Review of Systems: Yes all other systems are reviewed and are negative Neurologic: Denies Sensory deficit (Neuro) [facility] Past Medical History Medical History No pertinent past medical history Surgical History History of colectomy History of appendectomy History of back surgery Social History Social History Housing: House Alcohol intake: current Alcohol intake frequency: a few times a month Patient Tobacco Use Status: Former Tobacco user Tobacco use type: Cigarette Smoked in Last 30 Days: No e-Cigarette/Vaping Use: Never Used Second Hand Smoke Exposure: No Use of substances other than those prescribed or required for medical reasons: No Advance Directives: No Advance Directives Information Provided: Yes Do you have a plan to hurt others: No Plan service: Yes Current occupational status: employed Current occupation: machine shop Current occupational exposures/hazards: No Cognitive needs: No Hearing needs: No Vision needs: No Physical Exam ED Vital Signs: Vital Signs - 24 hr 04/20/24 11:17 Temperature 98.7 F Pulse Rate 72 Respiratory Rate 18 Blood Pressure 123/75 Pulse Oximetry 95 Oxygen Delivery Method Room Air BMI result Body Mass Index 32.1 Const General: healthy appearing Nutritional Appearance: average body habitus Orientation/consciousness: oriented to person and patient oriented x3 Limitations: no limitations HENMT Head: Yes normal to inspection Ears: external ears normal General nose exam: Normal external nose present Mouth: Normal oral and palatal mucosa present and oropharynx normal Throat: Yes posterior oropharynx normal Eyes General: appearance normal, both eyes and all related structures Neck Neck: Yes normal visual inspection Chest Chest palpation & inspection: normal inspection of the chest Resp Auscultation: clear to auscultation bilaterally Cardio Jugular venous distension: no JVD Rate: regular rate Rhythm: regular rhythm Heart sounds: S1 normal heart sound present and S2 normal heart sound present GI Inspection: Yes normal to inspection Palpation (GI): Soft to palpation, nontender and No hepatosplenomegaly present Auscultation: normal bowel sounds General: Yes no CVA tenderness Back/Spine/Pelvis Back: no CVA tenderness Skin Other: redness to right lower extremity and redness to right groin, some streaking going up leg Neuro General: oriented to person and patient oriented x3 Cranial nerves: Yes CN's II-XII intact bilaterally Motor exam (neuro): 5/5 motor strength present throughout Sensory Exam: No Sensory deficit (Neuro) Extrem Other: swollen right lower extremity, good pulses Psych Appearance: grossly normal Course Course Course Narrative: This is a rapid medical exam performed by Esdras Guerrero NP: Additional HPI, ROS, PE not included below will be deferred to primary provider. Patient is a 69-year-old male with history of CAD, HLD, HTN, T2DM presenting to the ED with complaint of right lower extremity redness and pain which began the day before yesterday. Unsure if he was bit by insect. Reports subjective fevers and swollen lymph node to right groin. Went to in [place] but was referred here for r/o DVT vs cellulitis. Plan: labs including tick borne, US Reevaluation(s) Reevaluation #1: no DVT on US will dc on keflex and doxycycline Time: 14:41 Medications Administered Discontinued Medications Generic Name Dose Route Start Last Admin Trade Name Freq PRN Reason Stop Dose Admin Doxycycline Monohydrate 100 mg 04/20/24 12:44 04/20/24 13:30 Doxycycline Monohydrate 100 Mg Capsule PO 04/20/24 12:45 100 mg ONCE ONE Administration Cefazolin Sodium 3 gm/ Sodium 100 mls @ 200 mls/hr 04/20/24 13:30 04/20/24 14:05 Chloride IV 04/20/24 13:59 200 mls/hr ONCE ONE Administration Medical Decision Making Differential Diagnosis Differential Diagnoses: The differential diagnosis associated with the presentation includes (Cellulitis, DVT, bacteremia were all considered) Admission/Observation Consideration of admission/observation: Escalation of care including admission/observation considered (upon arrival admission was considered) Lab Data 04/20/24 11:34 04/20/24 11:34 Labs: Lab Results 04/20/24 Range/Units 11:34 WBC 4.4 L (4.8-10.8) X10*3/uL RBC 4.89 (4.60-5.80) X10*6/uL Hgb 13.4 L (14.0-18.0) g/dl Hct 41.3 L (42.0-52.0) % MCV 84.5 (80.0-98.0) fL MCH 27.4 (27.0-33.0) pg MCHC 32.4 (31.0-36.0) g/dl RDW 14.9 (11.0-16.0) % Plt Count 120 L (160-400) X10*3/uL MPV 11.8 (9.4-12.4) fL Immature Gran % (Auto) 0.5 H (0.0-0.4) % Neut % (Auto) 69.2 (45-73) % Lymph % (Auto) 20.4 (20-40) % [place] % (Auto) 5.5 (2-11) % Eos % (Auto) 3.9 (0-4) % Baso % (Auto) 0.5 (0-2) % Lymph # (Auto) 0.9 L (1.2-4.9) X10*3/uL [place] # (Auto) 0.2 (0.1-1.2) X10*3/uL Eos # (Auto) 0.2 (0.0-0.4) X10*3/uL Baso # (Auto) 0.0 (0.0-0.2) X10*3/uL Abs Immat Gran (auto) 0.02 (0.00-0.03) X10*3/uL Absolute Neuts (auto) 3.0 (2.0-8.3) x10*3/uL Absolute Nucleated RBC 0.000 (0.0-0.012) X10*3/uL Nucleated RBC % (auto) 0.0 (0.0-0.2) /100WBC ESR 14 (0-15) MM/HR PT 11.8 (11.1-13.3) SEC INR 1.0 (0.9-1.1) Sodium 140 (135-145) mmol/L Potassium 4.3 (3.3-5.1) mmol/L Chloride 104 (96-108) mmol/L Carbon Dioxide 27 (22-29) mmol/L Anion Gap 13 (12-20) BUN 31 H (9-16) mg/dL Creatinine 1.20 (0.5-1.4) mg/dL Estim Creat Clear Calc 79.9 Estimated GFR > 60 Random Glucose 207 H (60-115) mg/dL Calcium 9.7 (8.4-10.2) mg/dL Total Bilirubin 0.5 (0.0-1.0) mg/dL AST 25 (5-37) U/L ALT 35 (0-40) U/L Alkaline Phosphatase 93 (39-117) U/L C-Reactive Protein 11.33 H (< or = 0.50) mg/dL Total Protein 6.8 (6.5-8.0) g/dL Albumin 3.9 (3.5-5.0) g/dL Independent Interpretation I performed an independent interpretation of an: Ultrasound (no DVT, enlarged lymph nodes) Radiology Impression Discussion of test interpretation with radiology: I have reviewed the radiologist's reading. (and agree) Independent Historian Clinical information obtained from an independent historian. History obtained from or confirmed by: Spouse Chronic Conditions Patient?s care impacted by: Diabetes Discharge Plan Discharge Clinical Impression: Cellulitis Patient Disposition: Home, Self-Care Instructions: Cellulitis (ED), Warm Compress or Soak (ED) Prescriptions: New cephalexin 500 mg capsule 500 mg PO Q6H 10 Days Qty: 40 0RF doxycycline monohydrate 100 mg capsule 100 mg PO BID Qty: 20 0RF No Action sildenafil 100 mg tablet 100 mg PO DAILY PRN (Reason: sexual activity) 30 Days Qty: 4 3RF Rx Instructions: administer 30 minutes to 4 hours before activity metformin 1,000 mg tablet 1,000 mg PO BID 90 Days Qty: 180 2RF ibuprofen 800 mg tablet 800 mg PO Q8H PRN (Reason: pain) 30 Days Qty: 90 3RF glipizide 5 mg tablet extended release 24hr 5 mg PO DAILY 90 Days Qty: 90 3RF Trulicity 0.75 mg/0.5 mL pen injector 0.75 mg subcut QWEEK 28 Days Qty: 2 4RF atorvastatin 80 mg tablet 80 mg PO DAILY 90 Days Qty: 90 2RF tamsulosin 0.4 mg capsule 0.8 mg PO DAILY 90 Days Qty: 180 3RF chlorthalidone 25 mg tablet 12.5 mg PO DAILY 90 Days Qty: 45 3RF omeprazole 20 mg capsule,delayed release(DR/EC) 20 mg PO DAILY 90 Days Qty: 90 3RF metoprolol tartrate 50 mg tablet 50 mg PO DAILY 90 Days Qty: 90 3RF lisinopril 20 mg tablet 20 mg PO DAILY 90 Days Qty: 90 3RF azithromycin [Zithromax Z-[place]] 250 mg tablet See Rx Instructions PO .COMPLEX 5 Days Qty: 6 0RF Rx Instructions: take 500 mg today (day 1), then 250 mg for 4 days (days 2-5) PO Referrals: Stefan Olvera MD [Primary Care Provider] - 2 days Print Language: Bulgarian
[2024-04-20 11:40] LABS: MANUAL DIFF FLAG NO
[2024-04-20 11:41] LABS: Basophils Percent Auto 0.5 % (0-2); Eosinophils Absolute Auto 0.2 X10*3/uL (0.0-0.4); Eosinophils Percent Auto 3.9 % (0-4); Hematocrit 41.3 % (42.0-52.0); Hemoglobin 13.4 g/dl (14.0-18.0); Imm Gran Abs Auto 0.02 X10*3/uL (0.00-0.03); Imm Gran Pct Auto 0.5 % (0.0-0.4); Lymphocytes Absolute Auto 0.9 X10*3/uL (1.2-4.9); Lymphocytes Percent Auto 20.4 % (20-40); Mean Corpuscular HGB Conc 32.4 g/dl (31.0-36.0); Mean Corpuscular Hemoglobin 27.4 pg (27.0-33.0); Mean Corpuscular Volume 84.5 fL (80.0-98.0); Mean Platelet Volume 11.8 fL (9.4-12.4); Monocytes Absolute Auto 0.2 X10*3/uL (0.1-1.2); Monocytes Percent Auto 5.5 % (2-11); Neutrophils Percent Auto 69.2 % (45-73); Platelet Count 120 X10*3/uL (160-400); Red Blood Count 4.89 X10*6/uL (4.60-5.80); Red Cell Distribution Width 14.9 % (11.0-16.0); White Blood Count 4.4 X10*3/uL (4.8-10.8)
[2024-04-20 11:47] LABS: Prothrombin Time 11.8 SEC (11.1-13.3)
[2024-04-20 11:59] LABS: Alanine Aminotransferase 35 U/L (0-40); Albumin Level 3.9 g/dL (3.5-5.0); Alkaline Phosphatase 93 U/L (39-117); Anion Gap 13 (12-20); Aspartate Amino Transferase 25 U/L (5-37); Bilirubin Total 0.5 mg/dL (0.0-1.0); Blood Urea Nitrogen 31 mg/dL (9-16); C Reactive Protein 11.33 mg/dL (< or = 0.50); Calcium 9.7 mg/dL (8.4-10.2); Carbon Dioxide 27 mmol/L (22-29); Chloride 104 mmol/L (96-108); Creatinine Clr Calc Pharmacy 79.9; Estimated Glomerular Filt Rate > 60; Glucose Random 207 mg/dL (60-115); Potassium 4.3 mmol/L (3.3-5.1); Sodium 140 mmol/L (135-145); Total Protein 6.8 g/dL (6.5-8.0)
[2024-04-20 12:25] LABS: Erythrocyte Sedimentation Rate 14 MM/HR (0-15)
[2024-04-20] MEDS: Doxycycline Monohydrate 100 MG CAPSULE PO (13:30)
--- NOTE | 2024-04-20 13:58 | PC.NURSE ---
IV abx delayed d/t blood cultures to be drawn and pharmacy to mix med and deliver to ER.
[2024-04-20] MEDS: ceFAZolin Sodium 3 GM in 0.9 % Sodium Chloride 100 ML IV (14:05)
[2024-04-20 14:30] VITALS: BP 123/75; PULSE 72; RESP 18; TEMP 37.1; O2SAT 95
[2024-04-21 16:32] LABS: A. Phagocytphilium DNA,RT-PCR NOT DETECTED (NOT DETECTED); Babesia Microti DNA, RT-PCR NOT DETECTED (NOT DETECTED); Borrelia Miyamotoi,DNA RT-PCR NOT DETECTED (NOT DETECTED); E.Chaffeensis DNA RT-PCR NOT DETECTED (NOT DETECTED); Lyme(Borrelia ssp)DNA RT-PCR NOT DETECTED (NOT DETECTED)
== END 2024-04-20 15:50 | disposition home or self-care (01) ==
PROVIDERS: Registered Nurse Emergency; Emergency Provider Emergency Medicine; PCP Family Medicine
DX: L03.115 Cellulitis of right lower limb (principal); E11.9 Type 2 diabetes mellitus without complications; I10 Essential (primary) hypertension
CPT/HCPCS: 36415; 80053; 85025; 85610; 85652; 86140; 87040; 87468; 87469; 87478; 87484; 87798; 93971; 96365; 96366; 99284; J0690

== ENCOUNTER 2024-05-01 09:36 | Outpatient (AMB) | payer MEDICARE, SELFPAY ==
[2024-05-01 09:45] VITALS: BP 130/62; PULSE 73; O2SAT 96; BMI 32.8
--- NOTE | 2024-05-01 09:45 | MHC.PC.OV ---
Vital Signs 05/01/24 09:45 Height 6 ft 2 in Weight 255 lb 2 oz BMI 32.8 BP 130/62 Blood Pressure Location Lt brachial Position Sitting Pulse 73 Pulse Source Pulse Oximeter Pulse Oximetry (%) 96 Oxygen Delivery Method Room Air Intake Visit Reasons: follow up on ed r leg swelling Intake Note: Patient is here to follow up on right leg swelling, had an ultrasound done. Allergies penicillin V Allergy (Severe, Verified 05/01/24 09:47) hives,anaphylaxis bee pollen [BEE STINGS] Allergy (Unknown, Verified 05/01/24 09:47) SWELLING Tobacco use date assessed: 04/15/24 Fall risk assessment: No Falls in past year Last assessed Fall Risk: 05/01/24 Dental Screening Dental Screen Date: 12/17/23 HPI follow up on ed r leg swelling HPI Details 69 y/o male presents to f/u ED visit 03/31/24 for R leg swelling. Pt had complaints of an insect bite on R leg and reported increased leg swelling, redness and discomfort and had noticed chills. Was prescribed cephalexin and doxycyline for cellulitis. He denies any issues with his antibiotics. Redness improved per pt but reports ongoing redness. Continues to swell when he moves around. [facility] Medical History No pertinent past medical history Surgical History History of colectomy History of appendectomy History of back surgery Social History Housing: House Alcohol intake: current Alcohol intake frequency: a few times a month Patient Tobacco Use Status: Former Tobacco user Tobacco use type: Cigarette e-Cigarette/Vaping Use: Never Used Second Hand Smoke Exposure: No service: Yes Current occupational status: employed Current occupation: machine shop Current occupational exposures/hazards: No Cognitive needs: No Hearing needs: No Vision needs: No Questionnaire Thrive Questionnaire Date Thrive assessed: 12/17/23 GHAZALA-7 AMB Questionnaire GHAZALA-7 Date GHAZALA - 7 assessed: 12/17/23 Source: Developed by Drs. Brian Norman, Onelia Pritchard, Sanya Enamorado and colleagues, with an educational lucila from [employer]. Review of Systems Const Denies chills, Denies fatigue, Denies fever(s), Denies headache(s) and Denies weakness ENT Denies dizziness and Denies headache(s) Card Denies dyspnea Resp Denies cough, Denies dyspnea, Denies wheezing and Denies other (shortness of breath) Musc Denies numbness and Denies tingling Neuro Denies dizziness, Denies headache(s), Denies numbness, Denies tingling and Denies weakness Psych Denies anxiety and Denies depression Endo Denies fatigue Aller/Immun Denies wheezing Physical exam (Primary Care) Vital Signs: Last Vital Signs Pulse 73 05/01/24 09:45 BP 130/62 05/01/24 09:45 Pulse Ox 96 05/01/24 09:45 Oxygen Delivery Method Room Air 05/01/24 09:45 BMI result Body Mass Index 32.8 Tobacco/Smoking Status: Tobacco use Status Tobacco use date assessed 04/15/24 05/01/24 09:48 Patient Tobacco Use Status Former Tobacco user 05/01/24 09:48 Tobacco use type Cigarette 05/01/24 09:48 e-Cigarette/Vaping Use Never Used 05/01/24 09:48 Thrive Assessment: Date of Thrive Assessment Date Thrive assessed 12/17/23 05/01/24 09:48 Const General: well developed; No acute distress Nutritional Appearance: well nourished Orientation/consciousness: patient oriented x3 [facility] Head: Yes normocephalic and Yes atraumatic Eyes General: appearance normal, both eyes and all related structures Pupils: Equal, round and reactive pupils present EOM: EOMs intact bilaterally Resp Effort & Inspection: normal respiratory effort Neuro General: patient oriented x3 and gait normal Cranial nerves: Yes Equal, round and reactive pupils present Psych Affect: normal affect Assessment and Plan Assessment & Plan (1) Cellulitis: Code(s): L03.90 - Cellulitis, unspecified Plan: Improving?cellulitis?of?right?lower?leg. Still?has?some?erythema,?tenderness?and?mild?swelling?which?patient?notes?gets?worse?if?he?is?on?his?feet?for?more?than?short?periods?of?time. He?notes?that?today?is?the?last?day?for?his?antibiotic Will?continue?his?doxycycline?and?cephalexin?for?another?5?days Can?walk?and?should?elevate?his?leg?when?he?is?able. We?also?discussed?compression?stockings?as?his??bought?him?some?but?his?leg?he?has?been?too?tender?for?this.??He?should?try?it?again?this?weekend?if?he?can?tolerate?it, and?use?it?when?standing?for?long?periods?of?time?while?working. Call?or?return?to?office?if?worsening?or?not?fully?resolved. Medications: Changed From doxycycline monohydrate 100 mg PO BID 20 caps 0RF To doxycycline monohydrate 100 mg PO BID 5 days 10 caps 0RF From cephalexin 500 mg PO Q6H 10 days 40 caps 0RF To cephalexin 500 mg PO Q6H 5 days 20 caps 0RF Coding Level of Care Code Est Pt Level 3 (19208) Diagnoses Cellulitis L03.90
== END 2024-05-01 10:22 | disposition home or self-care (01) ==
PROVIDERS: PCP Family Medicine; Visit Provider Family Medicine
DX: L03.90 Cellulitis, unspecified (principal)
CPT/HCPCS: 99213

== ENCOUNTER 2024-07-28 15:46 | Outpatient (AMB) | payer BC, SELFPAY ==
--- NOTE | 2024-07-28 16:03 | A.OFFPC_ITS ---
Vital Signs 07/28/24 16:09 Height 6 ft 2 in Weight 25 lb 6 oz BMI 3.3 BP 106/58 L Blood Pressure Location Rt brachial Position Sitting Respiration 16 Pulse 84 Pulse Source Pulse Oximeter Temp 97.1 F Temp Source Tympanic Pulse Oximetry (%) 94 Oxygen Delivery Method Room Air Intake Visit Reasons: CPE with f/u labs and health maint. Intake Note: CPE pt did not get labs done Allergies penicillin V Allergy (Severe, Verified 07/28/24 16:04) hives,anaphylaxis bee pollen [BEE STINGS] Allergy (Unknown, Verified 07/28/24 16:04) SWELLING Tobacco use date assessed: 07/28/24 Fall risk assessment: No Falls in past year Last assessed Fall Risk: 07/28/24 Dental Screening Dental Screen Date: 07/28/24 Did you have a dental visit in the last 12 months?: Yes Did you have a dental problem in the last 6 months where you did not have access to dental care?: No Was dental information given to patient?: Patient has dentist HPI CPE with f/u labs and health maint. HPI Details 69 y/o male presents for a CPE with f/u labs and health maintenance. Labs drawn 04/08/24. Reviewed labs with pt. Triglycerides 166. TC 105. LDL 43. HDL low at 29. He is on artovastatin 80mg daily. PSA 2.36. Last A1c in November 6.3%. Blood pressure today 106/58. He is on lisinopril 20mg, metoprolol 50mg, chlorthalidone 12.5mg daily. He denies feeling lightheaded. HPI Comments History of Present Illness Details Documentation assistance for Stefan Olvera MD, was provided by Michael Navarrete, Automation Tender on 07/28/2024 at 4:27 PM EST. I, Dr. Olvera, have read, observed, and verified documentation. [facility] Medical History No pertinent past medical history Surgical History History of colectomy History of appendectomy History of back surgery Social History (Updated 07/28/24 @ 16:07 by Shauna Jay) Housing: House Alcohol intake: current Alcohol intake frequency: a few times a month Patient Tobacco Use Status: Former Tobacco user Tobacco use type: Cigarette e-Cigarette/Vaping Use: Never Used Second Hand Smoke Exposure: No service: Yes Current occupational status: employed Current occupation: machine shop Current occupational exposures/hazards: No Cognitive needs: No Hearing needs: No Vision needs: No Questionnaire PHQ-9 Over the last 2 weeks, how often have you been bothered by any of the following problems? 1. Little interest or pleasure in doing things: not at all 2. Feeling down, depressed, or hopeless: not at all 3. Trouble falling or staying asleep, or sleeping too much: not at all 4. Feeling tired or having little energy: not at all 5. Poor appetite or overeating: not at all 6. Feeling bad about yourself - or that you are a failure or have let yourself or your family down: not at all 7. Trouble concentrating on things, such as reading the newspaper or watching television: not at all 8. Moving or speaking so slowly that other people could have noticed. Or the opposite - being so fidgety or restless that you have been moving around a lot more than usual: not at all 9. Thoughts that you would be better off or of hurting yourself in some way: not at all Total score: 0 Depression Screening Interpretation: Negative Depression Screening Done: Yes [id number] - PHQ-9 Billing: Yes Source: Developed by Drs. Brian Norman, Onelia Pritchard, Sanya Enamorado and colleagues, with an educational lucila from [employer]. Thrive Questionnaire Date Thrive assessed: 07/28/24 I am a: Patient What is your living situation today?: I have a steady place to live Within the past 12 months, did the food you bought not last and you didn't have the money to get more?: Never true Within the past 12 months, did you worry whether your food would run out before you got money to buy more?: Never true Do you have trouble paying for medicines?: No Do you have trouble getting transportation to medical appointments?: No Do you have trouble paying your heating and electricity bill?: No Do you have trouble taking care of your child, family member or friend?: No Do you have trouble with day-to-day activities such as bathing, preparing meals, shopping, managing finances, etc.?: No Are you currently unemployed and looking for a job?: No Are you interested in more education?: No Currently or been in a relationship where the following occur: No concerns reported THRIVE Score: 0 AUDIT C Alcohol Use Questionnaire (AUDIT-C) 1. How often do you have a drink containing alcohol?: Monthly or less 2. How many drinks containing alcohol do you have on a typical day when you are drinking?: 1 or 2 3. How often do you have six or more drinks on one occasion?: Never Total Score: 1 Score Reviewed/Action Taken: Yes GHAZALA-7 AMB Questionnaire GHAZALA-7 Date GHAZALA - 7 assessed: 07/28/24 Feeling nervous, anxious, or on edge: 0 = Not at all Not being able to stop or control worryin = Not at all Worrying too much about different things: 0 = Not at all Trouble relaxin = Not at all Being so restless that it is hard to sit still: 0 = Not at all Becoming easily annoyed or irritable: 0 = Not at all Feeling afraid as if something awful might happen: 0 = Not at all Total GHAZALA-7 score (0-4 normal; 5-9 mild; 10-14 moderate; 15-21 severe): 0 Source: Developed by Drs. Brian Norman, Onelia Pritchard, Sanya Enamorado and colleagues, with an educational lucila from [employer]. GHAZALA-7 Assessment Billing GHAZALA-7 Assessment Tool: GHAZALA-7 Assessment [id number] Review of Systems Const Denies chills, Denies fatigue, Denies fever(s), Denies headache(s) and Denies weakness Eyes Denies change in vision ENT Denies dizziness, Denies headache(s), Denies hearing loss, Denies nasal congestion, Denies sinus pain, Denies sinus pressure and Denies sore throat Card Denies chest pain, Denies lightheadedness, Denies dyspnea and Denies other (palpitations) Resp Denies cough, Denies dyspnea and Denies wheezing GI Denies abdominal pain, Denies melena, Denies hematochezia, Denies change in bowel habits, Denies dyspepsia and Denies nausea Denies hematuria and Denies dysuria Musc Denies abnormal gait, Denies myalgias, Denies arthralgias, Denies numbness and Denies tingling Skin/Breast Denies rash, Denies unusual bruising and Denies wounds Neuro Denies abnormal gait, Denies dizziness, Denies headache(s), Denies memory loss, Denies numbness, Denies Sensory deficit (Neuro), Denies tingling and Denies weakness Psych Denies anxiety, Denies depression and Denies memory loss Endo Denies cold intolerance, Denies fatigue, Denies heat intolerance, Denies polydipsia and Denies polyuria David/Lymph Denies easy bleeding and Denies easy bruising Aller/Immun Denies wheezing Physical exam (Primary Care) Vital Signs: Last Vital Signs Temp 97.1 F 07/28/24 16:09 Pulse 84 07/28/24 16:09 Resp 16 07/28/24 16:09 Pulse Ox 94 07/28/24 16:09 Oxygen Delivery Method Room Air 07/28/24 16:09 BMI result Body Mass Index 3.3 Tobacco/Smoking Status: Tobacco use Status Tobacco use date assessed 07/28/24 07/28/24 16:18 Patient Tobacco Use Status Former Tobacco user 07/28/24 16:18 Tobacco use type Cigarette 07/28/24 16:18 e-Cigarette/Vaping Use Never Used 07/28/24 16:18 PHQ-9: PHQ-9 Score PHQ-9: Total score 0 07/28/24 16:29 Depression Screening Interpretation: Negative Thrive Assessment: Date of Thrive Assessment Date Thrive assessed 07/28/24 07/28/24 16:18 Currently or been in a relationship where the following occur: No concerns reported Const General: no acute distress, well developed, alert and awake Nutritional Appearance: well nourished Orientation/consciousness: patient oriented x3 [facility] Head: Yes normocephalic and Yes atraumatic Ears: hearing grossly normal bilaterally and TM's normal bilaterally General nose exam: Normal external nose present and Normal nares present Mouth: Normal oral and palatal mucosa present and moist mucous membranes Teeth and gingiva: dentition normal Throat: Yes posterior oropharynx normal Eyes General: appearance normal, both eyes and all related structures Pupils: Equal, round and reactive pupils present and Pupil accommodation reflex normal EOM: EOMs intact bilaterally Neck Neck: Yes normal visual inspection, Yes no lymphadenopathy and Yes trachea midline Thyroid: Thyroid normal Carotids: no bruits Lymphatic: no lymphadenopathy noted Chest Chest palpation & inspection: normal inspection of the chest Resp Other: Abnormal lung sounds Effort & Inspection: normal respiratory effort Auscultation: not clear to auscultation bilaterally Cardio Rate: regular rate Rhythm: regular rhythm Heart sounds: S1 normal heart sound present, S2 normal heart sound present, no gallops, no murmurs and no rubs Bruits: no abdominal aortic bruits and no carotid bruits GI Palpation (GI): No Abdominal aortic bruit present, Soft to palpation, nontender, No hepatosplenomegaly present and No Rebound tenderness present Auscultation: normal bowel sounds General: Yes no CVA tenderness Back/Spine/Pelvis Back: no CVA tenderness Cervical Spine: cervical ROM normal and No Cervical spine tenderness Thoracic/Lumbar Spine: thoraco-lumbar ROM normal, No pain with thoraco-lumbar ROM, No thoracic spinal tenderness and No lumbar spinal tenderness Skin Lesions: no lesions Rashes: no rashes Trauma: no lacerations or abrasions Wounds: no wounds Nails: normal Neuro General: patient oriented x3 Cranial nerves: Yes Equal, round and reactive pupils present Cognition (Neuro): normal cognition Gait exam (Neuro): Normal gait present Motor exam (neuro): 5/5 motor strength present throughout Sensory Exam: No Sensory deficit (Neuro) Deep tendon reflexes (DTR's): Right patellar reflex intensity grade: 2+ and Left patellar reflex intensity grade: 2+ Extrem General: Yes normal to inspection and No edema Psych Appearance: grossly normal Affect: normal affect Attitude: cooperative Thought process: Normal thought process present Assessment and Plan Assessment & Plan (1) Adult general medical exam: Code(s): Z00.00 - Encounter for general adult medical examination without abnormal findings Plan: 69-year-old?male?presents?for?complete?physical?exam (2) Essential hypertension: Code(s): I10 - Essential (primary) hypertension Plan: Blood?pressure?is?low?though?patient?is?asymptomatic Will?decrease?lisinopril?from?20?mg?daily?to?10?mg?daily?and?continue?his?other? medications?as?prescribed. He?can?check?his?blood?pressures?at?home?and?will?let?me?know?if?blood?pressures ?are?still?low?at?follow-up?telemedicine?visit?in?a?couple?weeks. (3) Chest pain: Code(s): R07.9 - Chest pain, unspecified Plan: Patient?had?had?chest?discomfort?and?abnormal?breath?sounds?on?le ft?lower?lung?[place]. Chest?x-ray?showed?atelectasis. Still?has?abnormal?breath?sounds.??Will?repeat?chest?x-ray. Will?follow-up?in?2?weeks?by?telemedicine (4) Hyperlipidemia: Code(s): E78.5 - Hyperlipidemia, unspecified Plan: LDL?cholesterol?is?well?controlled. HDL?is?too?low Continue?current?medication?and?work?at?increased?exercise (5) CAD (coronary artery disease): Code(s): I25.10 - Atherosclerotic heart disease of [place] coronary artery without angina pectoris Plan: Stable Follow-up?with?Cardiology?as?recommended (6) Diabetes: Code(s): E11.9 - Type 2 diabetes mellitus without complications Plan: Taking?medications?as?prescribed Will?check?A1c?with?his?labs Follow-up?in?2?weeks?at?telemedicine?appointment (7) Screening for prostate cancer: Code(s): Z12.5 - Encounter for screening for malignant neoplasm of prostate Plan: PSA?in?May?was?within?normal?range Will?continue?annual?screen (8) Screening for colon cancer: Code(s): Z12.11 - Encounter for screening for malignant neoplasm of colon Plan: Patient?says?he?has?a?colonoscopy?scheduled?with??[facility] Orders: Orders XR chest 2V Today R07.9 - Chest pain, unspecified, R09.89 - Other specified symptoms and signs involving the circulatory and respiratory systems, Z87.891 - Personal history of nicotine dependence Comprehensive [place]. Panel Fast Today E78.6 - Lipoprotein deficiency, Z00.00 - Encounter for general adult medical examination without abnormal findings Hemoglobin A1c Today R73.01 - Impaired fasting glucose Lipid Panel Today E78.6 - Lipoprotein deficiency, Z00.00 - Encounter for general adult medical examination without abnormal findings Complete Blood Count Auto Diff Today R09.89 - Other specified symptoms and signs involving the circulatory and respiratory systems, Z00.00 - Encounter for general adult medical examination without abnormal findings Medications: Changed From lisinopril 20 mg PO DAILY 90 days 90 tabs 3RF To lisinopril 10 mg PO DAILY 90 days 90 tabs 3RF Coding Level of Care Code Est Pt Level 3 (78009) Est Pt Prev Care >65y(60502) Diagnoses Adult general medical exam Z00.00 Essential hypertension I10 Chest pain R07.9 Hyperlipidemia E78.5 CAD (coronary artery disease) I25.10 Diabetes E11.9 Screening for prostate cancer Z12.5 Screening for colon cancer Z12.11 Additional Codes GHAZALA-7 Assessment Billing - GHAZALA-7 Assessment Tool: GHAZALA-7 Assessment [id number] ([id number])
[2024-07-28 16:09] VITALS: BP 106/58; PULSE 84; RESP 16; TEMP 36.2; O2SAT 94; BMI 32.9
--- NOTE | 2024-07-28 16:55 | A.OFFPC_ITS ---
Vital Signs 07/28/24 16:09 Height 6 ft 2 in Weight 256 lb 6 oz BMI 32.9 BP 106/58 L Blood Pressure Location Rt brachial Position Sitting Respiration 16 Pulse 84 Pulse Source Pulse Oximeter Temp 97.1 F Temp Source Tympanic Pulse Oximetry (%) 94 Oxygen Delivery Method Room Air Intake Visit Reasons: CPE with f/u labs and health maint. Allergies penicillin V Allergy (Severe, Verified 07/28/24 16:04) hives,anaphylaxis bee pollen [BEE STINGS] Allergy (Unknown, Verified 07/28/24 16:04) SWELLING Tobacco use date assessed: 07/28/24 Dental Screening Dental Screen Date: 07/28/24 Did you have a dental visit in the last 12 months?: Yes Did you have a dental problem in the last 6 months where you did not have access to dental care?: No Was dental information given to patient?: Patient has dentist [facility] Medical History No pertinent past medical history Surgical History History of colectomy History of appendectomy History of back surgery Social History (Updated 07/28/24 @ 16:07 by Shauna Jay) Housing: House Alcohol intake: current Alcohol intake frequency: a few times a month Patient Tobacco Use Status: Former Tobacco user Tobacco use type: Cigarette e-Cigarette/Vaping Use: Never Used Second Hand Smoke Exposure: No service: Yes Current occupational status: employed Current occupation: machine shop Current occupational exposures/hazards: No Cognitive needs: No Hearing needs: No Vision needs: No Questionnaire PHQ-9 Over the last 2 weeks, how often have you been bothered by any of the following problems? 1. Little interest or pleasure in doing things: not at all 2. Feeling down, depressed, or hopeless: not at all 3. Trouble falling or staying asleep, or sleeping too much: not at all 4. Feeling tired or having little energy: not at all 5. Poor appetite or overeating: not at all 6. Feeling bad about yourself - or that you are a failure or have let yourself or your family down: not at all 7. Trouble concentrating on things, such as reading the newspaper or watching television: not at all 8. Moving or speaking so slowly that other people could have noticed. Or the opposite - being so fidgety or restless that you have been moving around a lot more than usual: not at all 9. Thoughts that you would be better off or of hurting yourself in some way: not at all Total score: 0 Depression Screening Interpretation: Negative Depression Screening Done: Yes 16682 - PHQ-9 Billing: Yes Source: Developed by Drs. Brian Norman, Onelia Pritchard, Sanya Enamorado and colleagues, with an educational lucila from [employer]. Thrive Questionnaire Date Thrive assessed: 07/28/24 I am a: Patient What is your living situation today?: I have a steady place to live Within the past 12 months, did the food you bought not last and you didn't have the money to get more?: Never true Within the past 12 months, did you worry whether your food would run out before you got money to buy more?: Never true Do you have trouble paying for medicines?: No Do you have trouble getting transportation to medical appointments?: No Do you have trouble paying your heating and electricity bill?: No Do you have trouble taking care of your child, family member or friend?: No Do you have trouble with day-to-day activities such as bathing, preparing meals, shopping, managing finances, etc.?: No Are you currently unemployed and looking for a job?: No Are you interested in more education?: No Currently or been in a relationship where the following occur: No concerns reported THRIVE Score: 0 AUDIT C Alcohol Use Questionnaire (AUDIT-C) 1. How often do you have a drink containing alcohol?: Monthly or less 2. How many drinks containing alcohol do you have on a typical day when you are drinking?: 1 or 2 3. How often do you have six or more drinks on one occasion?: Never Total Score: 1 Score Reviewed/Action Taken: Yes GHAZALA-7 AMB Questionnaire GHAZALA-7 Date GHAZALA - 7 assessed: 07/28/24 Feeling nervous, anxious, or on edge: 0 = Not at all Not being able to stop or control worryin = Not at all Worrying too much about different things: 0 = Not at all Trouble relaxin = Not at all Being so restless that it is hard to sit still: 0 = Not at all Becoming easily annoyed or irritable: 0 = Not at all Feeling afraid as if something awful might happen: 0 = Not at all Total GHAZALA-7 score (0-4 normal; 5-9 mild; 10-14 moderate; 15-21 severe): 0 Source: Developed by Drs. Brian Norman, Onelia Pritchard, Sanya Enamorado and colleagues, with an educational ulcila from [employer]. Physical exam (Primary Care) Vital Signs: Last Vital Signs Temp 97.1 F 07/28/24 16:09 Pulse 84 07/28/24 16:09 Resp 16 07/28/24 16:09 BP 106/58 L 07/28/24 16:09 Pulse Ox 94 07/28/24 16:09 Oxygen Delivery Method Room Air 07/28/24 16:09 BMI result Body Mass Index 3.3 Tobacco/Smoking Status: Tobacco use Status Tobacco use date assessed 07/28/24 07/28/24 16:18 Patient Tobacco Use Status Former Tobacco user 07/28/24 16:18 Tobacco use type Cigarette 07/28/24 16:18 e-Cigarette/Vaping Use Never Used 07/28/24 16:18 PHQ-9: PHQ-9 Score PHQ-9: Total score 0 07/28/24 16:40 Depression Screening Interpretation: Negative Thrive Assessment: Date of Thrive Assessment Date Thrive assessed 07/28/24 07/28/24 16:18 Currently or been in a relationship where the following occur: No concerns reported Assessment and Plan Assessment & Plan (1) Adult general medical exam: Code(s): Z00.00 - Encounter for general adult medical examination without abnormal findings (2) Essential hypertension: Code(s): I10 - Essential (primary) hypertension (3) Chest pain: Code(s): R07.9 - Chest pain, unspecified (4) Hyperlipidemia: Code(s): E78.5 - Hyperlipidemia, unspecified (5) CAD (coronary artery disease): Code(s): I25.10 - Atherosclerotic heart disease of kashia coronary artery without angina pectoris (6) Diabetes: Code(s): E11.9 - Type 2 diabetes mellitus without complications (7) Screening for prostate cancer: Code(s): Z12.5 - Encounter for screening for malignant neoplasm of prostate (8) Screening for colon cancer: Code(s): Z12.11 - Encounter for screening for malignant neoplasm of colon Orders: Orders XR chest 2V Today R07.9 - Chest pain, unspecified, R09.89 - Other specified symptoms and signs involving the circulatory and respiratory systems, Z87.891 - Personal history of nicotine dependence Comprehensive [place]. Panel Fast Today E78.6 - Lipoprotein deficiency, Z00.00 - Encounter for general adult medical examination without abnormal findings Hemoglobin A1c Today R73.01 - Impaired fasting glucose Lipid Panel Today E78.6 - Lipoprotein deficiency, Z00.00 - [facility] without abnormal findings Complete Blood Count Auto Diff Today R09.89 - Other specified symptoms and signs involving the circulatory and respiratory systems, Z00.00 - Encounter for general adult medical examination without abnormal findings Medications: Changed From lisinopril 20 mg PO DAILY 90 days 90 tabs 3RF To lisinopril 10 mg PO DAILY 90 tabs 3RF 90 days Coding Diagnoses Adult general medical exam Z00.00 Essential hypertension I10 Chest pain R07.9 Hyperlipidemia E78.5 CAD (coronary artery disease) I25.10 Diabetes E11.9 Screening for prostate cancer Z12.5 Screening for colon cancer Z12.11
== END 2024-07-28 16:45 | disposition home or self-care (01) ==
PROVIDERS: PCP Family Medicine; Visit Provider Family Medicine
DX: Z00.00 Encounter for general adult medical examination without abnormal findings (principal); I10 Essential (primary) hypertension; E11.9 Type 2 diabetes mellitus without complications; R07.9 Chest pain, unspecified; E78.5 Hyperlipidemia, unspecified; I25.10 Atherosclerotic heart disease of native coronary artery without angina pectoris; Z12.5 Encounter for screening for malignant neoplasm of prostate; Z12.11 Encounter for screening for malignant neoplasm of colon
CPT/HCPCS: 99213; 99397

== ENCOUNTER 2024-08-04 07:09 | Outpatient (REF) | payer MEDICARE, SELFPAY ==
--- NOTE | ~2024-08-04 | XR_ITS ---
EXAMINATION: XR CHEST CLINICAL INFORMATION: Chest pain unspecified COMPARISON: Prior chest March 2024 TECHNIQUE: 2 views of the chest were obtained. FINDINGS: No significant abnormality is noted involving the heart, lungs, mediastinum, bony thorax or soft tissues. XR/XR chest 2V IMPRESSION: Unremarkable examination. Electronically signed by: Shaw López MD 08/19/2024 06:30 AM EDT RP
[2024-08-04 07:21] LABS: MANUAL DIFF FLAG NO
[2024-08-04 07:31] LABS: Basophils Percent Auto 0.7 % (0-2); Eosinophils Absolute Auto 0.2 X10*3/uL (0.0-0.4); Eosinophils Percent Auto 3.7 % (0-4); Hematocrit 41.3 % (42.0-52.0); Hemoglobin 13.1 g/dl (14.0-18.0); Imm Gran Abs Auto 0.02 X10*3/uL (0.00-0.03); Imm Gran Pct Auto 0.4 % (0.0-0.4); Lymphocytes Absolute Auto 1.2 X10*3/uL (1.2-4.9); Lymphocytes Percent Auto 22.1 % (20-40); Mean Corpuscular HGB Conc 31.7 g/dl (31.0-36.0); Mean Corpuscular Hemoglobin 26.7 pg (27.0-33.0); Mean Corpuscular Volume 84.3 fL (80.0-98.0); Mean Platelet Volume 12.3 fL (9.4-12.4); Monocytes Absolute Auto 0.3 X10*3/uL (0.1-1.2); Monocytes Percent Auto 5.5 % (2-11); Neutrophils Absolute Auto 3.7 x10*3/uL (2.0-8.3); Neutrophils Percent Auto 67.6 % (45-73); Platelet Count 130 X10*3/uL (160-400); Red Cell Distribution Width 14.1 % (11.0-16.0); White Blood Count 5.4 X10*3/uL (4.8-10.8)
[2024-08-04 07:49] LABS: Estimated Average Glucose 134 mg/dL; Hemoglobin A1C 151.6012 umol/L; Hemoglobin A1c % 6.3 % (<6.0)
[2024-08-04 08:07] LABS: Alanine Aminotransferase 42 U/L (0-40); Alkaline Phosphatase 109 U/L (39-117); Anion Gap 14 (12-20); Aspartate Amino Transferase 27 U/L (5-37); Bilirubin Total 0.6 mg/dL (0.0-1.0); Blood Urea Nitrogen 21 mg/dL (9-16); Carbon Dioxide 25 mmol/L (22-29); Chloride 104 mmol/L (96-108); Cholesterol 113 mg/dL (<200); Estimated Glomerular Filt Rate > 60; Glucose Fasting 155 mg/dL (60-99); HDL Cholesterol 29 mg/dL (>40); LDL Cholesterol Calculated 62 mg/dL (<100); Potassium 3.7 mmol/L (3.3-5.1); Sodium 139 mmol/L (135-145); Total Protein 6.5 g/dL (6.5-8.0); Triglycerides 110 mg/dL (<150)
== END 2024-08-04 07:10 | disposition home or self-care (01) ==
LOC: HO.XRAY 07:09
PROVIDERS: PCP Family Medicine; Visit Provider Family Medicine
DX: Z00.00 Encounter for general adult medical examination without abnormal findings (principal); R07.9 Chest pain, unspecified; E87.6 Hypokalemia; R73.01 Impaired fasting glucose; Z87.891 Personal history of nicotine dependence; R09.89 Other specified symptoms and signs involving the circulatory and respiratory systems
CPT/HCPCS: 36415; 71046; 80053; 80061; 83036; 85025

== ENCOUNTER 2024-08-10 07:22 | Day surgery (SDC) | payer MEDICARE, SELFPAY ==
[2024-08-06 14:40] VITALS: BMI 34.7
--- NOTE | 2024-08-07 12:35 | HO.ANESPROP2 ---
Documented by User: Inga Flores NP 08/07/24 12:38 HPI - Anesthesia Eval Consult details Narrative: 69yo M for Colonoscopy Anesthesia Pre-Procedure Meds Is the patient on any of the following meds?: GLP1/DPP4 PMFSH Active Problems Active Problems: All Active Problems Abnormal lung sounds (Acute) Chest pain (Acute) History of smoking (Acute) Left shoulder pain (Acute) Diarrhea (Acute) Intermittent diarrhea (Acute) CAD (coronary artery disease) (Acute) Hyperlipidemia (Acute) Subconjunctival hematoma (Acute) Low HDL (under 40) (Acute) Erectile dysfunction (Acute) Back pain (Acute) Essential hypertension (Acute) Diabetes type 2, uncontrolled (Acute) Screening for colon cancer (Acute) Screening for prostate cancer (Acute) Adult general medical exam (Acute) Abnormal pulmonary finding (Acute) Laboratory examination ordered as part of a routine general medical examination (Acute) Diabetes (Acute) Past Medical History Medical History (Updated 08/06/24 @ 14:52 by Kylah Moya RN) Diverticulitis Fatty liver GERD (gastroesophageal reflux disease) Sleep apnea Hyperlipidemia Diabetes HTN (hypertension) CAD (coronary artery disease) Surgical History Surgical History (Updated 08/06/24 @ 14:40 by Kylah Moya RN) Hx of nasal septoplasty Hx of hand surgery Hx of knee surgery History of esophagogastroduodenoscopy (EGD) H/O colonoscopy Hx of heart artery stent History of colectomy History of appendectomy History of back surgery Social History Social History (Updated 08/06/24 @ 14:42 by Kylah Moya RN) Household Members: Spouse Housing: House Alcohol intake: current Alcohol intake frequency: a few times a month Patient Tobacco Use Status: Former Tobacco user Tobacco use type: Cigarette e-Cigarette/Vaping Use: Never Used Second Hand Smoke Exposure: No Use of substances other than those prescribed or required for medical reasons: No Are you DNR?: No Advance Directives: No Advance Directives Information Provided: Yes Recently lost weight without trying: No service: Yes Current occupational status: employed Current occupation: machine shop Current occupational exposures/hazards: No Cognitive needs: No Hearing needs: No Vision needs: No Meds Allergies Allergy/AdvReac Type Severity Reaction Status Date / Time penicillin V Allergy Severe hives,anaph Verified 08/10/24 07:59 ylaxis bee pollen [BEE STINGS] Allergy Unknown SWELLING Verified 08/10/24 07:59 Exam Height,Weight and Vital Signs: Height 6 ft Weight 116.12 kg Assessment and Plan Assessment Anesthesia Assessment: Chart Reviewed Documented by User: Taqueria Oconnor MD 08/10/24 09:00 HPI - Anesthesia Eval Anesthesia Pre-Procedure Meds If yes to any meds - educate patient: Pt education - increased risk of aspiration and/or euvolemic DKA [facility] Past Medical History Medical History (Updated 08/06/24 @ 14:52 by Kylah Moya RN) Diverticulitis Fatty liver GERD (gastroesophageal reflux disease) Sleep apnea Hyperlipidemia Diabetes HTN (hypertension) CAD (coronary artery disease) Narrative: Had stent placed in his heart 18 yrs ago for excessive daytime sleepiness. No problem since then. Denies hx of chest pain. Family History Family history of problems with anesthesia: No Surgical History Surgical History (Updated 08/06/24 @ 14:40 by Kylah Moya RN) Hx of nasal septoplasty Hx of hand surgery Hx of knee surgery History of esophagogastroduodenoscopy (EGD) H/O colonoscopy Hx of heart artery stent History of colectomy History of appendectomy History of back surgery History of Problems with Anesthesia: No Social History Social History (Updated 08/06/24 @ 14:42 by Kylah Moya RN) Household Members: Spouse Housing: House Alcohol intake: current Alcohol intake frequency: a few times a month Patient Tobacco Use Status: Former Tobacco user Tobacco use type: Cigarette e-Cigarette/Vaping Use: Never Used Second Hand Smoke Exposure: No Use of substances other than those prescribed or required for medical reasons: No Are you DNR?: No Advance Directives: No Advance Directives Information Provided: Yes Recently lost weight without trying: No service: Yes Current occupational status: employed Current occupation: machine shop Current occupational exposures/hazards: No Cognitive needs: No Hearing needs: No Vision needs: No Meds Allergies Allergy/AdvReac Type Severity Reaction Status Date / Time penicillin V Allergy Severe hives,anaph Verified 08/10/24 07:59 ylaxis bee pollen [BEE STINGS] Allergy Unknown SWELLING Verified 08/10/24 07:59 Exam Airway Mallampati Class: II TM Dist: <=3cm Neck ROM: Full Loose/Missing/Broken Teeth: Yes, Upper and Lower Heart: ok Lungs: ok. Sat 95% on room air. Recent CXR is clear. Assessment and Plan Assessment Anesthesia Assessment: Anesthesia Plan Discussed Final Anesthetic Review Family History of Problems with Anesthesia: No History of Problems with Anesthesia: No NPO: Yes ASA Class: III Final Preanesthetic Review: No Changes in Pt Med Stat, Meds/Allgs Chart Reviewed, Consent Obtained/Reviewed and Anes Risks/Benef Reviewed Patient Risk: Intermediate Procedure Risk: Low Anesthetic Plan Anesthetic Plan: MAC: and Agree w/ Assess. and Plan Disposition: Standard PACU
[2024-08-10 08:05] VITALS: BP 146/90; PULSE 65; RESP 18; TEMP 36; O2SAT 95; BMI 32.5
[2024-08-10 08:14] LABS: Glucose, Whole Blood 134 mg/dL (60-115)
[2024-08-10] MEDS: Lactated Ringers 1,000 ML 100 ML IVCONT (08:29)
[2024-08-10 09:34] VITALS: BP 89/53; PULSE 59; RESP 18; TEMP 36.9; O2SAT 94
--- NOTE | 2024-08-10 09:36 | PM.OP ---
Brief Operative Note Date of Service: 08/10/24 Pre-op diagnosis: Screening Post-op diagnosis: other (Int/Ext hemorrhoids) Procedure: Colonoscopy to the cecum and TI Surgeon: Brian Bryson MD Anesthesia: MAC Was an Health Service Worker used for this Procedure?: No Estimated blood loss (mL): 0 Pathology: none sent Condition: stable Disposition: PACU
[2024-08-10 09:46] VITALS: BP 93/54; PULSE 58; RESP 16; O2SAT 96
[2024-08-10 09:49] VITALS: BP 99/49; PULSE 60; RESP 16; O2SAT 97
[2024-08-10 10:04] VITALS: BP 111/60; PULSE 52; RESP 16; O2SAT 99
[2024-08-10 10:15] VITALS: BP 133/78; PULSE 52; RESP 16; TEMP 36.2; O2SAT 99
--- NOTE | 2024-08-10 10:16 | OP_ITS ---
DATE OF SERVICE: 08/10/2024 SURGEON: Brian Bryson MD INDICATIONS: The patient presents for followup of personal history of tubular adenoma of the colon, family history of colon cancer, a colorectal cancer screening. Full consent has been obtained from him for this, including risks of bleeding and perforation. PREOPERATIVE DIAGNOSIS: POSTOPERATIVE DIAGNOSIS: PROCEDURE PERFORMED: Colonoscopy to the cecum and terminal ileum. ESTIMATED BLOOD LOSS: COMPLICATIONS: ANESTHESIA: Monitored anesthesia care. ASSISTANTS: SPECIMENS: PREOPERATIVE DIAGNOSES: Colorectal cancer screening, personal history of tubular adenomas of the colon, family history of colon cancer. POSTOPERATIVE DIAGNOSES: Colorectal cancer screening, personal history of tubular adenomas of the colon, family history of colon cancer, normal anastomosis, and internal and external hemorrhoids. DESCRIPTION OF PROCEDURE: The patient was placed in the left lateral decubitus position. The digital rectal exam revealed some external hemorrhoidal tissue. The Olympus video pediatric colonoscope was entered into the rectum and advanced to the cecum. Once in the cecum, I did identify normal-appearing cecal pouch with appendiceal orifice and a normal-appearing ileocecal valve. The terminal ileum was cannulated and appeared normal. The scope was withdrawn back in the colon. The entire cecum and ileocecal valve appeared normal. The scope was slowly withdrawn assessing all mucosal surfaces carefully. Preparation was excellent. I visualized a normal-appearing anastomosis at 20 cm. I did not appreciate any sign of polyps, colitis, angiodysplasias, nor diverticular disease. In the rectum, scope was retroflexed visualizing some internal hemorrhoids, but no other pathology. The rectal mucosa appeared normal. Scope was straightened and withdrawn from the patient. He tolerated the procedure well and was returned to the recovery area in stable condition. IMPRESSION: 1. Normal anastomosis. 2. Internal and external hemorrhoids. PLAN: I would recommend a repeat colonoscopy in 5 years for further surveillance given his previous history of polyps and family history of colon cancer. Of note, a recent liver profile as of August 04 was completely normal other than a minimally elevated ALT of 42 in regard to his history of fatty liver. He will otherwise see me on a p.r.n. basis. MD OLEG Lopez/INDU / [id number]
== END 2024-08-10 11:05 | disposition home or self-care (01) ==
PROVIDERS: PCP Family Medicine; Visit Provider Internal Medicine
PROC: 0DJD8ZZ Inspection of Lower Intestinal Tract, Via Natural or Artificial Opening Endoscopic (ICD-10-PCS; CPT 45378; principal; 2024-08-10 08:30)
DX: Z12.11 Encounter for screening for malignant neoplasm of colon (principal); Z80.0 Family history of malignant neoplasm of digestive organs; Z86.010 Personal history of colon polyps; K64.8 Other hemorrhoids; K64.4 Residual hemorrhoidal skin tags; Z90.49 Acquired absence of other specified parts of digestive tract; Z87.19 Personal history of other diseases of the digestive system; Z98.0 Intestinal bypass and anastomosis status; K76.0 Fatty (change of) liver, not elsewhere classified; K21.9 Gastro-esophageal reflux disease without esophagitis; E78.5 Hyperlipidemia, unspecified; I25.10 Atherosclerotic heart disease of native coronary artery without angina pectoris; Z95.5 Presence of coronary angioplasty implant and graft; I10 Essential (primary) hypertension; E11.9 Type 2 diabetes mellitus without complications; G47.30 Sleep apnea, unspecified; Z79.85 Long-term (current) use of injectable non-insulin antidiabetic drugs; Z79.84 Long term (current) use of oral hypoglycemic drugs; Z79.899 Other long term (current) drug therapy; Z88.0 Allergy status to penicillin; Z98.890 Other specified postprocedural states
CPT/HCPCS: G0105; 82947; J2704

== ENCOUNTER 2024-09-16 07:17 | Outpatient (REF) | payer MEDICARE, SELFPAY ==
[2024-09-16 07:37] LABS: MANUAL DIFF FLAG NO
[2024-09-16 07:49] LABS: Basophils Percent Auto 0.8 % (0-2); Eosinophils Absolute Auto 0.2 X10*3/uL (0.0-0.4); Eosinophils Percent Auto 4.3 % (0-4); Hematocrit 40.2 % (42.0-52.0); Hemoglobin 12.6 g/dl (14.0-18.0); Imm Gran Abs Auto 0.05 X10*3/uL (0.00-0.03); Lymphocytes Absolute Auto 1.2 X10*3/uL (1.2-4.9); Lymphocytes Percent Auto 23.6 % (20-40); Mean Corpuscular HGB Conc 31.3 g/dl (31.0-36.0); Mean Corpuscular Hemoglobin 26.8 pg (27.0-33.0); Mean Corpuscular Volume 85.4 fL (80.0-98.0); Mean Platelet Volume 12.2 fL (9.4-12.4); Monocytes Absolute Auto 0.4 X10*3/uL (0.1-1.2); Monocytes Percent Auto 7.5 % (2-11); Neutrophils Absolute Auto 3.2 x10*3/uL (2.0-8.3); Neutrophils Percent Auto 62.8 % (45-73); Platelet Count 125 X10*3/uL (160-400); Red Blood Count 4.71 X10*6/uL (4.60-5.80); White Blood Count 5.1 X10*3/uL (4.8-10.8)
[2024-09-16 08:17] LABS: Alanine Aminotransferase 34 U/L (0-40); Albumin Level 3.9 g/dL (3.5-5.0); Alkaline Phosphatase 116 U/L (39-117); Anion Gap 11 (12-20); Aspartate Amino Transferase 28 U/L (5-37); Bilirubin Total 0.6 mg/dL (0.0-1.0); Blood Urea Nitrogen 24 mg/dL (9-16); Calcium 9.1 mg/dL (8.4-10.2); Carbon Dioxide 28 mmol/L (22-29); Chloride 108 mmol/L (96-108); Estimated Glomerular Filt Rate > 60; Glucose Fasting 129 mg/dL (60-99); Sodium 143 mmol/L (135-145); Total Protein 6.4 g/dL (6.5-8.0)
== END 2024-09-16 07:18 | disposition home or self-care (01) ==
LOC: HO.LAB 07:17
PROVIDERS: PCP Family Medicine; Visit Provider Family Medicine
DX: Z00.00 Encounter for general adult medical examination without abnormal findings (principal); R09.89 Other specified symptoms and signs involving the circulatory and respiratory systems
CPT/HCPCS: 36415; 80053; 85025

== ENCOUNTER → 2024-09-21 08:43 | Outpatient (AMB) | payer MEDICARE, SELFPAY ==
--- NOTE | 2024-09-21 08:41 | MHC.PC.OV ---
Intake Visit Reasons: F/U CPE- LABS VIA TELEMEDICINE Intake Note: f/u labs pt will 2pm Allergies penicillin V Allergy (Severe, Verified 08/10/24 07:59) hives,anaphylaxis bee pollen [BEE STINGS] Allergy (Unknown, Verified 08/10/24 07:59) SWELLING Tobacco use date assessed: 07/28/24 Dental Screening Dental Screen Date: 07/28/24 HPI F/U CPE- LABS VIA TELEMEDICINE HPI Details 69 y/o male presents to f/u labs via telemedicine. Labs drawn 09/16/24. Reviewed labs with pt. Mild anemia. Hgb 12.6 g/dl, Hct 40.2%. ALT improved from 42 to 34. AST 28. [facility] Medical History (Updated 09/21/24 @ 13:50 by Michael Navarrete) Diverticulitis Fatty liver GERD (gastroesophageal reflux disease) Sleep apnea Hyperlipidemia Diabetes HTN (hypertension) CAD (coronary artery disease) Surgical History (Updated 08/06/24 @ 14:40 by Kylah Moya RN) Hx of nasal septoplasty Hx of hand surgery Hx of knee surgery History of esophagogastroduodenoscopy (EGD) H/O colonoscopy Hx of heart artery stent History of colectomy History of appendectomy History of back surgery Social History (Updated 08/06/24 @ 14:42 by Kylah Moya RN) Household Members: Spouse Housing: House Alcohol intake: current Alcohol intake frequency: a few times a month Patient Tobacco Use Status: Former Tobacco user Tobacco use type: Cigarette e-Cigarette/Vaping Use: Never Used Second Hand Smoke Exposure: No service: Yes Current occupational status: employed Current occupation: machine shop Current occupational exposures/hazards: No Cognitive needs: No Hearing needs: No Vision needs: No Questionnaire Thrive Questionnaire Date Thrive assessed: 07/28/24 GHAZALA-7 AMB Questionnaire GHAZALA-7 Date GHAZALA - 7 assessed: 07/28/24 Source: Developed by Drs. Brian Norman, Onelia Pritchard, Sanya Enamorado and colleagues, with an educational lucila from [employer]. Physical exam (Primary Care) Tobacco/Smoking Status: Tobacco use Status Tobacco use date assessed 07/28/24 09/21/24 08:43 Patient Tobacco Use Status Former Tobacco user 09/21/24 08:43 Tobacco use type Cigarette 10/28/24 08:43 e-Cigarette/Vaping Use Never Used 09/21/24 08:43 Thrive Assessment: Date of Thrive Assessment Date Thrive assessed 07/28/24 09/21/24 08:43 Telehealth Telehealth Telehealth Platform: Telephone Location of provider rendering services: practice address Location of patient: address on file Patient Identification confirmed using: Name, : Yes Telehealth method: voice only Patient verbally consented to treatment: Yes Patient verbally consented to billing insurance company: Yes Patient informed of any privacy concerns related to visit: Yes Minutes spent on Phone/Video with Pt.: 8 Coding Level of Care Code Tele Est Pt Level 2 (67297) Diagnoses Mild anemia D64.9 Hyperlipidemia E78.5 Diabetes E11.9 Elevated liver enzymes R74.8 Essential hypertension I10 Assessment & Plan Assessment & Plan (1) Mild anemia: Code(s): D64.9 - Anemia, unspecified Category: Medical Plan: Stable?anemia Will?continue?to?monitor (2) Hyperlipidemia: Code(s): E78.5 - Hyperlipidemia, unspecified Category: Medical Plan: LDL?cholesterol?is?well?controlled?on?atorvastatin HDL?is?too?low Encouraged?exercise. Encouraged?[place]?3?fatty?acids (3) Diabetes: Code(s): E11.9 - Type 2 diabetes mellitus without complications Category: Medical Plan: A1c?is?6.3%.??Good?control.??Goal?is?less?than?7% Continue?current?medication?regimen?and?diabetic?diet (4) Elevated liver enzymes: Code(s): R74.8 - Abnormal levels of other serum enzymes Category: Medical Plan: Patient?had?a?mild?transient?elevation?in?ALT?which?resolved?with?repeat?labs (5) Essential hypertension: Code(s): I10 - Essential (primary) hypertension Category: Medical Plan: Blood?pressure?had?been?too?low?and?I?decreased?his?lisinopril. Blood?pressures?at?home?now?much?better?controlled. Continue?current?medication?regimen Will?follow-up?in?a?few?months Medications: Refilled tamsulosin 0.8 mg (2 x 0.4 mg) PO DAILY 180 caps 3RF 90 days
== END ==
LOC: HO.HMCFM 08:43
PROVIDERS: PCP Family Medicine; Visit Provider Family Medicine
DX: D64.9 Anemia, unspecified (principal); E11.69 Type 2 diabetes mellitus with other specified complication; E78.5 Hyperlipidemia, unspecified; R74.8 Abnormal levels of other serum enzymes; I10 Essential (primary) hypertension

== ENCOUNTER → 2024-09-21 08:43 | Outpatient (BNVA) | payer MEDICARE, SELFPAY | PROVIDERS: PCP Family Medicine; Visit Provider Family Medicine ==

== ENCOUNTER 2025-08-02 15:48 | Outpatient (AMB) | payer MEDICARE, SELFPAY ==
--- OUTSIDE RECORDS SUMMARY | 2024-08-10 04:30 | XMS_ITS ---
Author Organization [facility] Address [address] [place] [address] Care Team Providers Care Vp Scientific Name Role Phone Stefan Olvera Primary Care Provider Unavailab Brian Martinez Unavailable [phone] REASON FOR VISIT screening,hx polyps,fam hx colon ca Problems Problem Type SNOMED Code ICD Code Onset Dates Problem Status W/U Status Risk Notes Problem History of polyp of colon (situation) (427858551) Personal history of colonic polyps (Z86.010) Active confirmed Problem History of gastrointestinal tract bypass (861475301) Intestinal bypass and anastomosis status (Z98.0) Active confirmed Encounters Encounter Location Date Provider Diagnosis [facility] [place] [address] [place], [place] [phone] 08/10/2024 Brian Bryson Colon cancer scree evelyn [...] CHAVEZ III(TYLER) P :1955 (70 yo M)Acc No.[id number]:08/10/2024 COLON WITH MAC Patient: PRIMO GOLD III(NAYELI) P Provider: Maria L Bryson MD :1955 A ge:69 Y S ex:Male Date:08/10/2024 Address:[address] [place] [address], [facility] Pcp:Stefan Olvera Subjective: * Chief Complaints: * [...] 0 08/10/2024 Generated for Melvin newsome/Dale/eTransmitting on: 08/02/2025 06:35 PM EDT
[2025-08-02 15:52] VITALS: BP 132/76; PULSE 84; O2SAT 96; BMI 34.6
--- NOTE | 2025-08-02 15:52 | MHC.PC.OV ---
Vital Signs 08/02/25 15:52 Height 6 ft Weight 255 lb 8 oz BMI 34.6 BP 132/76 Blood Pressure Location Rt brachial Position Sitting Pulse 84 Pulse Source Pulse Oximeter Pulse Oximetry (%) 96 Oxygen Delivery Method Room Air Intake Visit Reasons: CPE with f/u labs and health maint. - see comments Allergies penicillin V Allergy (Severe, Verified 08/02/25 15:56) hives,anaphylaxis bee pollen (BEE STINGS) Allergy (Unknown, Verified 08/02/25 15:56) SWELLING Medication List - Last Reconciled 08/02/25 by Stefan Olvera MD atorvastatin 80 mg PO DAILY 90 days chlorthalidone 12.5 mg (1/2 x 25 mg) PO DAILY 90 days dulaglutide (Trulicity) 0.75 mg (0.5 mL) subcut QWEEK 28 days glipizide ER 5 mg PO DAILY 90 days ibuprofen 800 mg PO Q8H PRN 30 days lisinopril 10 mg PO DAILY 90 days metformin 1,000 mg PO BID 90 days metoprolol tartrate 50 mg PO DAILY 90 days omeprazole 20 mg PO DAILY 90 days sildenafil 100 mg PO DAILY PRN 30 days tamsulosin 0.8 mg (2 x 0.4 mg) PO DAILY 90 days Tobacco use date assessed: 08/02/25 Fall risk assessment: No Falls in past year Last assessed Fall Risk: 08/02/25 Dental Screening Dental Screen Date: 08/02/25 Did you have a dental visit in the last 12 months?: Yes Did you have a dental problem in the last 6 months where you did not have access to dental care?: No Was dental information given to patient?: Patient has dentist HPI CPE with f/u labs and health maint. - see comments HPI Details 70 y/o male presents for a CPE with f/u labs and health maintenance. A1c today 6.6%. He is on Trulicity 0.75mg, glipzide 5mg, metformin 1000mg b.i.d. Blood pressure today 132/76, 84p. He is on lisinopril 10mg, chlorthalidone 12.5mg daily. No recent labs to review. [facility] Medical History Diverticulitis Fatty liver GERD (gastroesophageal reflux disease) Sleep apnea Hyperlipidemia Diabetes HTN (hypertension) CAD (coronary artery disease) Surgical History Hx of nasal septoplasty Hx of hand surgery Hx of knee surgery History of esophagogastroduodenoscopy (EGD) H/O colonoscopy Hx of heart artery stent History of colectomy History of appendectomy History of back surgery Social History Household Members: Spouse Housing: House Alcohol intake: current Alcohol intake frequency: a few times a month Patient Tobacco Use Status: Former Tobacco user Tobacco use type: Cigarette e-Cigarette/Vaping Use: Never Used Second Hand Smoke Exposure: No service: Yes Current occupational status: employed Current occupation: machine shop Current occupational exposures/hazards: No Cognitive needs: No Hearing needs: No Vision needs: No Questionnaire PHQ-9 Over the last 2 weeks, how often have you been bothered by any of the following problems? 1. Little interest or pleasure in doing things: not at all 2. Feeling down, depressed, or hopeless: not at all 3. Trouble falling or staying asleep, or sleeping too much: not at all 4. Feeling tired or having little energy: not at all 5. Poor appetite or overeating: not at all 6. Feeling bad about yourself - or that you are a failure or have let yourself or your family down: not at all 7. Trouble concentrating on things, such as reading the newspaper or watching television: not at all 8. Moving or speaking so slowly that other people could have noticed. Or the opposite - being so fidgety or restless that you have been moving around a lot more than usual: not at all 9. Thoughts that you would be better off or of hurting yourself in some way: not at all Total score: 0 Depression Screening Interpretation: Negative Depression Screening Done: Yes 44426 - PHQ-9 Billing: Yes Source: Developed by Drs. Brian Norman, Onelia Pritchard, Sanya Enamorado and colleagues, with an educational lucila from [employer]. Thrive Questionnaire Date Thrive assessed: 07/27/25 I am a: Patient What is your living situation today?: I have a steady place to live Within the past 12 months, did the food you bought not last and you didn't have the money to get more?: Never true Within the past 12 months, did you worry whether your food would run out before you got money to buy more?: Never true Do you have trouble paying for medicines?: No Do you have trouble getting transportation to medical appointments?: No Do you have trouble paying your heating and electricity bill?: No Do you have trouble taking care of your child, family member or friend?: No Do you have trouble with day-to-day activities such as bathing, preparing meals, shopping, managing finances, etc.?: No Are you currently unemployed and looking for a job?: No Are you interested in more education?: No Please select the resources that you would like help with: None Currently or been in a relationship where the following occur: No concerns reported THRIVE Score: 0 AUDIT C Alcohol Use Questionnaire (AUDIT-C) 1. How often do you have a drink containing alcohol?: 2-4 times a month 2. How many drinks containing alcohol do you have on a typical day when you are drinking?: 1 or 2 3. How often do you have six or more drinks on one occasion?: Never Total Score: 2 GHAZALA-7 AMB Questionnaire GHAZALA-7 Date GHAZALA - 7 assessed: 08/02/25 Feeling nervous, anxious, or on edge: 0 = Not at all Not being able to stop or control worryin = Not at all Worrying too much about different things: 0 = Not at all Trouble relaxin = Not at all Being so restless that it is hard to sit still: 0 = Not at all Becoming easily annoyed or irritable: 0 = Not at all Feeling afraid as if something awful might happen: 0 = Not at all Total GHAZALA-7 score (0-4 normal; 5-9 mild; 10-14 moderate; 15-21 severe): 0 Source: Developed by Drs. Brian Norman, Onelia Pritchard, Sanya Enamorado and colleagues, with an educational lucila from [employer]. GHAZALA-7 Assessment Billing GHAZALA-7 Assessment Tool: GHAZALA-7 Assessment 93287 Review of Systems Const Denies chills, Denies fatigue, Denies fever(s), Denies headache(s) and Denies weakness Eyes Denies change in vision ENT Denies dizziness, Denies headache(s), Denies hearing loss, Denies nasal congestion, Denies sinus pain, Denies sinus pressure and Denies sore throat Card Denies chest pain, Denies lightheadedness, Denies dyspnea and Denies other (palpitations) Resp Denies cough, Denies dyspnea and Denies wheezing GI Denies abdominal pain, Denies melena, Denies hematochezia, Denies change in bowel habits, Denies dyspepsia and Denies nausea Denies hematuria and Denies dysuria Musc Denies abnormal gait, Denies myalgias, Denies arthralgias, Denies numbness and Denies tingling Skin/Breast Denies rash, Denies unusual bruising and Denies wounds Neuro Denies abnormal gait, Denies dizziness, Denies headache(s), Denies memory loss, Denies numbness, Denies Sensory deficit (Neuro), Denies tingling and Denies weakness Psych Denies anxiety, Denies depression and Denies memory loss Endo Denies cold intolerance, Denies fatigue, Denies heat intolerance, Denies polydipsia and Denies polyuria David/Lymph Denies easy bleeding and Denies easy bruising Aller/Immun Denies wheezing Physical exam (Primary Care) Vital Signs: Last Vital Signs Pulse 84 08/02/25 15:52 BP 132/76 08/02/25 15:52 Pulse Ox 96 08/02/25 15:52 Oxygen Delivery Method Room Air 08/02/25 15:52 BMI result Body Mass Index 34.6 Tobacco/Smoking Status: Tobacco use Status Tobacco use date assessed 08/02/25 08/02/25 15:59 Patient Tobacco Use Status Former Tobacco user 08/02/25 15:56 Tobacco use type Cigarette 08/02/25 15:56 e-Cigarette/Vaping Use Never Used 08/02/25 15:56 PHQ-9: PHQ-9 Score PHQ-9: Total score 0 08/02/25 16:07 Depression Screening Interpretation: Negative Thrive Assessment: Date of Thrive Assessment Date Thrive assessed 07/27/25 08/02/25 15:56 Currently or been in a relationship where the following occur: No concerns reported Const General: no acute distress, well developed, alert and awake Nutritional Appearance: well nourished Orientation/consciousness: patient oriented x3 HENMT Head: Yes normocephalic and Yes atraumatic Ears: hearing grossly normal bilaterally and TM's normal bilaterally General nose exam: Normal external nose present and Normal nares present Mouth: Normal oral and palatal mucosa present and moist mucous membranes Teeth and gingiva: dentition normal Throat: Yes posterior oropharynx normal Eyes General: appearance normal, both eyes and all related structures Pupils: Equal, round and reactive pupils present and Pupil accommodation reflex normal EOM: EOMs intact bilaterally Neck Neck: Yes normal visual inspection, Yes no lymphadenopathy and Yes trachea midline Thyroid: Thyroid normal Carotids: no bruits Lymphatic: no lymphadenopathy noted Chest Chest palpation & inspection: normal inspection of the chest Resp Effort & Inspection: normal respiratory effort Auscultation: clear to auscultation bilaterally Cardio Rate: regular rate Rhythm: regular rhythm Heart sounds: S1 normal heart sound present, S2 normal heart sound present, no gallops, no murmurs and no rubs Bruits: no abdominal aortic bruits and no carotid bruits GI Palpation (GI): No Abdominal aortic bruit present, Soft to palpation, nontender, No hepatosplenomegaly present and No Rebound tenderness present Auscultation: normal bowel sounds General: Yes no CVA tenderness Back/Spine/Pelvis Back: no CVA tenderness Cervical Spine: cervical ROM normal and No Cervical spine tenderness Thoracic/Lumbar Spine: thoraco-lumbar ROM normal, No pain with thoraco-lumbar ROM, No thoracic spinal tenderness and No lumbar spinal tenderness Skin Lesions: no lesions Rashes: no rashes Trauma: no lacerations or abrasions Wounds: no wounds Nails: normal Neuro General: patient oriented x3 Cranial nerves: Yes Equal, round and reactive pupils present Cognition (Neuro): normal cognition Gait exam (Neuro): Normal gait present Motor exam (neuro): 5/5 motor strength present throughout Sensory Exam: No Sensory deficit (Neuro) Deep tendon reflexes (DTR's): Right patellar reflex intensity grade: 2+ and Left patellar reflex intensity grade: 2+ Extrem General: Yes normal to inspection and No edema Psych Appearance: grossly normal Affect: normal affect Attitude: cooperative Thought process: Normal thought process present Results AMB Hemoglobin A1c AMB Hemoglobin A1c 6.6 % Last Edit by Emely Jesus CMA on 08/02/25 16:07 Results Reviewed Results Reviewed: Laboratory Last Values Hgb A1c (Clinic) 6.6 % (4.0-6.0) H 08/02/25 16:07 Coding Level of Care Code Est Pt Level 3 (20284) Est Pt Prev Care >65y(11077) Diagnoses Adult general medical exam Z00.00 Essential hypertension I10 CAD (coronary artery disease) I25.10 Diabetes E11.9 Urinary retention R33.9 Screening for prostate cancer Z12.5 Screening for colon cancer Z12.11 Change in hearing H91.90 Additional Codes GHAZALA-7 Assessment Billing - GHAZALA-7 Assessment Tool: GHAZALA-7 Assessment 69395 ([id number]) PHQ-9 - 58951 - PHQ-9 Billing: Yes ([id number]) Assessment & Plan Assessment & Plan (1) Adult general medical exam: Code(s): Z00.00 - Encounter for general adult medical examination without abnormal findings Category: Medical Plan: 70-year-old male presents for complete physical exam Encouraged healthy diet with active lifestyle and plenty of exercise (2) Essential hypertension: Code(s): I10 - Essential (primary) hypertension Category: Medical Plan: Blood pressure is fairly well controlled. Goal is less than 130/80 Continue working on diet low in salt/sodium No changes to his blood pressure medication today (3) CAD (coronary artery disease): Code(s): I25.10 - Atherosclerotic heart disease of [place] coronary artery without angina pectoris Category: Medical Plan: Stable (4) Diabetes: Code(s): E11.9 - Type 2 diabetes mellitus without complications Category: Medical Plan: A1c 6.6% today. Goal is less than 7%. Good control Continue current medication regimen (5) Urinary retention: Code(s): R33.9 - Retention of urine, unspecified Category: Medical Plan: Worsening urinary retention despite tamsulosin 0.8 mg daily Will refer to Urology (6) Screening for prostate cancer: Code(s): Z12.5 - Encounter for screening for malignant neoplasm of prostate Category: Medical Plan: Check PSA (7) Screening for colon cancer: Code(s): Z12.11 - Encounter for screening for malignant neoplasm of colon Category: Medical Plan: Recent colonoscopy with Dr. 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 He does not use hearing protection and I recommended this Has used hearing aids in the past but they stopped working he did not pursue new ones Referred to audiology Orders: Orders Comprehensive [place]. Panel Fast Today Z00.00 - Encounter for general adult medical examination without abnormal findings Lipid Panel Today Z00.00 - Encounter for general adult medical examination without abnormal findings TSH reflex Free T4 Today Z00.00 - Encounter for general adult medical examination without abnormal findings UA CC w/rflx Micro + Cult Today Z00.00 - Encounter for general adult medical examination without abnormal findings AMB Hemoglobin A1c Today Z13.9 - Encounter for screening, unspecified Complete Blood Count Auto Diff Today Z00.00 - Encounter for general adult medical examination without abnormal findings Microalbumin, Random (w Creat) Today I10 - Essential (primary) hypertension Referrals Urology Referral R33.9 - Retention of urine, unspecified Audiology Referral H91.90 - Unspecified hearing loss, unspecified ear
--- OUTSIDE RECORDS SUMMARY | 2025-08-02 18:36 | XMS_ITS | Patient Health Record ---
Author Organization [facility] Address [address] [place] [address] Care Team Providers Care Bilingual Sales Representative Name Role Phone Stefan Olvera Primary Care Provider Unavailab Brian Martinez Unavailable [phone] Allergies Allergen (clinical drug ingredient) Drug/Non Drug Allergy documented on EMR Reaction Allergy Type Onset Date Status Penicillin Unknown Drug Allergy Active Results Component Value Reference Range Notes Glucose, Whole Blood Reviewed date:08/10/2024 11:09:39 PM Interpretation: Performing Lab:[facility], [address] [place] [id number] Notes/Report: Glucose, Whole Blood 134 60-115 mg/dL METER # : [id number] Reason For Referral No Information Medications Medication SIG (Take, Route, Frequency, Duration) Notes Start Date End Date Status glipiZIDE ER 10 MG 1 tablet Orally Once a day Active Chlorthalidone 25 MG TAKE ONE-HALF TABLE T BY MOUTH EVERY DAY Oral for 90 Active Omeprazole 20 MG 1 capsule Orally Onc e a day Active Trulicity 0.75 MG/0.5ML Subcutaneous for 28 Active Lisinopril 40 MG 1 tablet Orally Once a day Active Allergy 4 MG 1 tablet as needed O rally every 6 hrs Active Metoprolol Succinate ER 50 MG 1 tablet Orally Once a day Active Tamsulosin HCl 0.4 MG 1 capsule Orally O nce a day Active metFORMIN HCl 1000 MG 2 tablet with a me al Orally twice a day Active Atorvastatin Calcium 40 MG 1 tablet Oral ly Once a day Active Immunizations Vaccine Route Administration Date Status Comme nts Influenza Unknown 08/25/2018 Administered Problems Problem Type SNOMED Code ICD Code Onset Dates Problem Status W/U Status Risk Notes Problem 397210456 Encounter for screening for malignant neoplasm of colon (Z12.11) Active confirmed Problem 996941640 History of adenomatous polyp of colon (Z86.010) Active confirmed Problem History of polyp of colon (situation) (220784324) Personal history of colonic polyps (Z86.010) Active confirmed Problem History of gastrointestinal tract bypass (013984428) Intestinal bypass and anastomosis status (Z98.0) Active confirmed Problem 623725508 Fatty liver (K76.0) Active confirmed Problem 369826118 Gastroesophageal reflux disease, esophagitis presence not specified (K21.9) Active confirmed Problem 662500509 Family history o f colon cancer (Z80.0) Active confirmed Encounters Encounter Location Date Provider Diagnosis [facility] [address] [place] [id number] 08/10/2024 Brian Bryson Colon cancer scree evelyn [...] hemorrhoids (ICD-10 - K64.8) Plan Of Treatment Pending Test Test Name Order Date LIVER PROFILE 08/29/2012 LIVER PROFILE 03/31/2024 LIVER PROFILE 08/27/2012 HEPATITIS B SURFACE ANTIGEN 05/30/2012 Future Test Test Name Order Date COLONOSCOPY 03/03/2013 UPPER GI ENDOSCOPY 11/06/2018 COLONOSCOPY 11/06/2018 COLONOSCOPY 03/31/2024 Insurance Providers Payer Name Payer Address Payer Phone Subscriber Number Group Number Insured Name Patient Relationship to Insured Coverage Start Date Coverage End Date [facility] [address] [place] [address] [id number] DAMIR CHAVEZ III) Self - patient is the insured Medical (General) History Medical History History ICD Code Tubular adenomas-removed in 04/2008 and Diverticulitis-sigmoid resection in 08/14 02 NIDDM HTN CAD with stent placement in 2006-denies [place], no subsequent cardiac problems Denies [place],CVA,Lung disease,renal disease BPH Hyperlipidemia Sleep apnea--not using CPAP presently GERD-upper endoscopy in 2018 revealed a minimal hiatal hernia, but no significant esophagitis or Heart's esophagus; there was a minimal gastritis with biopsies negative for H. pylori Negative colonoscopy in 06/2013 Fatty liver--otherwise negative liver wo rkup in 2011. Negative screening colonoscopy in 2018. Surgical History Surgery Date(Month/Year) Sigmoid resection for diverticulitis 200 2 knee surgery appendectomy broken nose back surgery Thumb surgery 10/2012
== END 2025-08-02 16:26 | disposition home or self-care (01) ==
LOC: HO.HMCFM 15:49
PROVIDERS: PCP Family Medicine; Visit Provider Family Medicine
DX: Z00.00 Encounter for general adult medical examination without abnormal findings (principal); I10 Essential (primary) hypertension; I25.10 Atherosclerotic heart disease of native coronary artery without angina pectoris; E11.9 Type 2 diabetes mellitus without complications; R33.9 Retention of urine, unspecified; Z12.5 Encounter for screening for malignant neoplasm of prostate; Z12.11 Encounter for screening for malignant neoplasm of colon; H91.90 Unspecified hearing loss, unspecified ear

== ENCOUNTER → 2025-08-02 15:48 | Outpatient (BNVA) | payer MEDICARE, SELFPAY | PROVIDERS: PCP Family Medicine; Visit Provider Family Medicine | DX: Z00.00 Encounter for general adult medical examination without abnormal findings (principal); I10 Essential (primary) hypertension; I25.10 Atherosclerotic heart disease of native coronary artery without angina pectoris; E11.9 Type 2 diabetes mellitus without complications; R33.9 Retention of urine, unspecified | CPT/HCPCS: 83036; 96127; 99212; 99397 ==

== ENCOUNTER 2025-08-03 07:27 | Outpatient (REF) | payer MEDICARE, SELFPAY ==
--- OUTSIDE RECORDS SUMMARY | 2024-08-10 04:30 | XMS_ITS ---
Author Organization [facility] Address [address] [place] [address] Care Team Providers Care Evp Strategy Name Role Phone Stefan Olvera Primary Care Provider Unavailab Brian Martinez Unavailable [phone] REASON FOR VISIT screening,hx polyps,fam hx colon ca Problems Problem Type SNOMED Code ICD Code Onset Dates Problem Status W/U Status Risk Notes Problem History of polyp of colon (situation) (311463552) Personal history of colonic polyps (Z86.010) Active confirmed Problem History of gastrointestinal tract bypass (462439791) Intestinal bypass and anastomosis status (Z98.0) Active confirmed Encounters Encounter Location Date Provider Diagnosis [facility] [place] Outpatient [address] [place], [place] [phone] 08/10/2024 Brian Bryson Colon cancer scree evelyn [...] CHAVEZ III(TYLER) P :1955 (70 yo M)Acc No.[id number]:08/10/2024 COLON WITH MAC Patient: PRIMO GOLD III(NAYELI) P Provider: Maria L Bryson MD :1955 A ge:69 Y S ex:Male Date:08/10/2024 Address:[address] [place] [address], [id number] Pcp:Stefan Olvera Subjective: * Chief Complaints: * [...] 0 08/10/2024 Generated for Melvin newsome/Dale/eTransmitting on: 08/03/2025 07:30 AM EDT
--- OUTSIDE RECORDS SUMMARY | 2025-08-03 07:31 | XMS_ITS | Patient Health Record ---
Author Organization [facility] Address [address] [place] [address] Care Team Providers Care Finishing Tunnel Operator Name Role Phone Stefan Olvera Primary Care Provider Unavailab Brian Martinez Unavailable [phone] Allergies Allergen (clinical drug ingredient) Drug/Non Drug Allergy documented on EMR Reaction Allergy Type Onset Date Status Penicillin Unknown Drug Allergy Active Results Component Value Reference Range Notes Glucose, Whole Blood Reviewed date:08/10/2024 11:09:39 PM Interpretation: Performing Lab:[facility], [address] [place] [phone] Notes/Report: Glucose, Whole Blood 134 60-115 mg/dL METER # : [id number] Reason For Referral No Information Medications Medication [...] Problem Status W/U Status Risk Notes Problem 597552339 Encounter for screening for malignant neoplasm of colon (Z12.11) Active confirmed Problem 217001055 History of adenomatous polyp of colon (Z86.010) Active confirmed Problem History of polyp of colon (situation) (994838933) Personal history of colonic polyps (Z86.010) Active confirmed Problem History of gastrointestinal tract bypass (176646246) Intestinal bypass and anastomosis status (Z98.0) Active confirmed Problem 509540821 Fatty liver (K76.0) Active confirmed Problem 696475944 Gastroesophageal reflux disease, esophagitis presence not specified (K21.9) Active confirmed Problem 680587717 Family history o f colon cancer (Z80.0) Active confirmed Encounters Encounter Location Date Provider Diagnosis [facility] Outpatient [address] [place] [address] [id number] 08/10/2024 Brian Bryson Colon cancer scree evelyn [...] Insured Coverage Start Date Coverage End Date [facility] [address] [place] [address] [id number] DAMIR CHAVEZ III) Self - patient is the insured Medical (General) History Medical History History ICD Code Tubular adenomas-removed in 04/2008 and Diverticulitis-sigmoid resection in 08/14 02 NIDDM HTN CAD with stent placement in 2006-denies [place], no subsequent cardiac problems Denies [place],CVA,Lung disease,renal disease BPH Hyperlipidemia Sleep apnea--not using [...]
[2025-08-03 07:43] LABS: MANUAL DIFF FLAG NO
[2025-08-03 08:53] LABS: Hematocrit 39.3 % (42.0-52.0); Hemoglobin 12.6 g/dl (14.0-18.0); Imm Gran Abs Auto 0.03 X10*3/uL (0.00-0.03); Imm Gran Pct Auto 0.5 % (0.0-0.4); Lymphocytes Absolute Auto 0.9 X10*3/uL (1.2-4.9); Mean Corpuscular HGB Conc 32.1 g/dl (31.0-36.0); Mean Corpuscular Hemoglobin 26.7 pg (27.0-33.0); Mean Corpuscular Volume 83.3 fL (80.0-98.0); NRBC Abs Auto 0.000 X10*3/uL (0.0-0.012); NRBC Pct Auto 0.0 /100WBC (0.0-0.2); Platelet Count 125 X10*3/uL (160-400); Red Blood Count 4.72 X10*6/uL (4.60-5.80); White Blood Count 6.4 X10*3/uL (4.8-10.8)
[2025-08-03 09:22] LABS: Appearance Urine Clear; Glucose Urine UA Negative (Negative); PH 5.5 (5.0-9.0); Specific Gravity - Urine 1.010 (1.005-1.025)
[2025-08-03 09:22] LABS: Alanine Aminotransferase 47 U/L (0-40); Albumin Level 4.0 g/dL (3.5-5.0); Alkaline Phosphatase 112 U/L (39-117); Anion Gap 12 (12-20); Aspartate Amino Transferase 50 U/L (5-37); Blood Urea Nitrogen 23 mg/dL (9-16); Calcium 8.5 mg/dL (8.4-10.2); Carbon Dioxide 26 mmol/L (22-29); Chloride 105 mmol/L (96-108); Cholesterol 96 mg/dL (<200); Estimated Glomerular Filt Rate > 60; HDL Cholesterol 25 mg/dL (>40); Potassium 3.9 mmol/L (3.3-5.1); Sodium 139 mmol/L (135-145); Total Protein 6.3 g/dL (6.5-8.0); Triglycerides 141 mg/dL (<150)
[2025-08-03 10:22] LABS: Microalbum/Creatinine Ratio Ur 7.6 ug/mg cr (<30)
== END 2025-08-03 07:28 | disposition home or self-care (01) ==
LOC: HO.LAB 07:27
PROVIDERS: PCP Family Medicine; Visit Provider Family Medicine
DX: Z00.00 Encounter for general adult medical examination without abnormal findings (principal); I10 Essential (primary) hypertension; Z13.29 Encounter for screening for other suspected endocrine disorder
CPT/HCPCS: 36415; 80053; 80061; 81003; 82043; 82570; 84443; 85025

== ENCOUNTER 2025-08-24 16:28 | Outpatient (AMB) | payer MEDICARE, SELFPAY ==
--- OUTSIDE RECORDS SUMMARY | 2024-08-10 04:30 | XMS_ITS ---
Author Organization [facility] Address [address] [place] [address] Care Team Providers Care Physician/Allergy/Immunology Name Role Phone Stefan Olvera Primary Care Provider Unavailab Brian Martinez Unavailable [phone] REASON FOR VISIT screening,hx polyps,fam hx colon ca Problems Problem Type SNOMED Code ICD Code Onset Dates Problem Status W/U Status Risk Notes Problem History of polyp of colon (situation) (318727201) Personal history of colonic polyps (Z86.010) Active confirmed Problem History of gastrointestinal tract bypass (987918369) Intestinal bypass and anastomosis status (Z98.0) Active confirmed Encounters Encounter Location Date Provider Diagnosis [facility] [place] Outpatient [address] [place], [place] [phone] 08/10/2024 Brian Bryson Colon cancer scree evelyn [...] CHAVEZ III(TYLER) P :1955 (70 yo M)Acc No.[id number]:08/10/2024 COLON WITH MAC Patient: PRIMO GOLD III(NAYELI) P Provider: Maria L Bryson MD :1955 A ge:69 Y S ex:Male Date:08/10/2024 Address:[address] [place] [address], [id number] Pcp:Stefan Olvera Subjective: * Chief Complaints: * [...] * Provider: Maria L Bryson MD Date: 08/10/2024 Generated for Melvin newsome/Dale/eTransmitting on: 08/24/2025 05:14 PM EDT
--- NOTE | 2025-08-24 16:24 | MHC.PC.OV ---
Intake Visit Reasons: f/u CPE-labs via telemed Intake Note: Rao presents for a telehealth appointment to go over his lab results. Allergies penicillin V Allergy (Severe, Verified 08/24/25 16:25) hives,anaphylaxis bee pollen (BEE STINGS) Allergy (Unknown, Verified 08/24/25 16:25) SWELLING Medication List - Last Reconciled 08/24/25 by Stefan Olvera MD atorvastatin 80 mg PO DAILY 90 days chlorthalidone 12.5 mg (1/2 x 25 mg) PO DAILY 90 days dulaglutide (Trulicity) 0.75 mg (0.5 mL) subcut QWEEK 28 days glipizide ER 5 mg PO DAILY 90 days ibuprofen 800 mg PO Q8H PRN 30 days lisinopril 10 mg PO DAILY 90 days metformin 1,000 mg PO BID 90 days metoprolol tartrate 50 mg PO DAILY 90 days omeprazole 20 mg PO DAILY 90 days sildenafil 100 mg PO DAILY PRN 30 days tamsulosin 0.8 mg (2 x 0.4 mg) PO DAILY 90 days Tobacco use date assessed: 08/24/25 Dental Screening Dental Screen Date: 08/24/25 Did you have a dental visit in the last 12 months?: Yes Did you have a dental problem in the last 6 months where you did not have access to dental care?: No Was dental information given to patient?: Patient has dentist HPI f/u CPE-labs via telemed HPI Details 70 y/o male presents to f/u labs via telemedicine. Labs drawn 08/03/25. Reviewed labs with pt. Ongoing mild anemia. Elevated liver enzymes - AST 50, ALT 47. Triglycerides 141. TC 96. LDL 43. HDL low at 25. He is on artovastatin 80mg daily. Low plt count at 125. [facility] Medical History Diverticulitis Fatty liver GERD (gastroesophageal reflux disease) Sleep apnea Hyperlipidemia Diabetes HTN (hypertension) CAD (coronary artery disease) Surgical History Hx of nasal septoplasty Hx of hand surgery Hx of knee surgery History of esophagogastroduodenoscopy (EGD) H/O colonoscopy Hx of heart artery stent History of colectomy History of appendectomy History of back surgery Social History (Updated 08/24/25 @ 16:26 by Claudia Doherty CMA) Household Members: Spouse Housing: House Alcohol intake: current Alcohol intake frequency: a few times a month Patient Tobacco Use Status: Former Tobacco user Tobacco use type: Cigarette e-Cigarette/Vaping Use: Never Used Second Hand Smoke Exposure: No Use of substances other than those prescribed or required for medical reasons: No service: Yes Current occupational status: employed Current occupation: machine shop Current occupational exposures/hazards: No Cognitive needs: No Hearing needs: No Vision needs: No Questionnaire Thrive Questionnaire Date Thrive assessed: 07/27/25 GHAZALA-7 AMB Questionnaire GHAZALA-7 Date GHAZALA - 7 assessed: 08/02/25 Source: Developed by Drs. Brian Norman, Onelia Pritchard, Sanya Enamorado and colleagues, with an educational lucila from [employer] Review of Systems Const Denies chills, Denies fatigue, Denies fever(s), Denies headache(s) and Denies weakness ENT Denies dizziness and Denies headache(s) Card Denies dyspnea Resp Denies cough, Denies dyspnea, Denies wheezing and Denies other (shortness of breath) Musc Denies numbness and Denies tingling Neuro Denies dizziness, Denies headache(s), Denies numbness, Denies tingling and Denies weakness Psych Denies anxiety and Denies depression Endo Denies fatigue Aller/Immun Denies wheezing Physical exam (Primary Care) Tobacco/Smoking Status: Tobacco use Status Tobacco use date assessed 08/24/25 08/24/25 16:27 Patient Tobacco Use Status Former Tobacco user 08/24/25 16:27 Tobacco use type Cigarette 08/24/25 16:27 e-Cigarette/Vaping Use Never Used 08/24/25 16:27 Thrive Assessment: Date of Thrive Assessment Date Thrive assessed 07/27/25 08/24/25 16:27 Telehealth Telehealth Telehealth Platform: Telephone Location of provider rendering services: practice address Location of patient: address on file Patient Identification confirmed using: Name, : Yes Telehealth method: voice only Patient verbally consented to treatment: Yes Patient verbally consented to billing insurance company: Yes Patient informed of any privacy concerns related to visit: Yes Coding Level of Care Code Tele Est Pt Level 2 (59694) Diagnoses Hyperlipidemia E78.5 CAD (coronary artery disease) I25.10 Elevated liver enzymes R74.8 Mild anemia D64.9 Thrombocytopenia D69.6 Assessment & Plan Assessment & Plan (1) Hyperlipidemia: Code(s): E78.5 - Hyperlipidemia, unspecified Category: Medical Plan: LDL cholesterol is well controlled and at goal of less than 70 HDL is still too low Encouraged exercise and [place] 3 fatty acids in diet Will continue to monitor (2) CAD (coronary artery disease): Code(s): I25.10 - Atherosclerotic heart disease of [place] coronary artery without angina pectoris Category: Medical Plan: Stable Follow-up with Cardiology as recommended (3) Elevated liver enzymes: Code(s): R74.8 - Abnormal levels of other serum enzymes Category: Medical Plan: Elevated liver enzymes Encouraged weight loss, good hydration, avoid alcohol and Tylenol Will recheck liver enzymes prior to next visit and review with patient (4) Mild anemia: Code(s): D64.9 - Anemia, unspecified Category: Medical (5) Thrombocytopenia: Code(s): D69.6 - Thrombocytopenia, unspecified Category: Medical Plan Ongoing mild persistent anemia and thrombocytopenia Referred to Hematology-Oncology Orders: Orders Lipid Panel Today I25.10 - Atherosclerotic heart disease of [place] coronary artery without angina pectoris, Z00.00 - Encounter for general adult medical examination without abnormal findings Comprehensive [place]. Panel Fast Today R74.8 - Abnormal levels of other serum enzymes, Z00.00 - Encounter for general adult medical examination without abnormal findings Referrals Hematology & Oncology Referral D64.9 - Anemia, unspecified, D69.6 - Thrombocytopenia, unspecified
--- OUTSIDE RECORDS SUMMARY | 2025-08-24 17:15 | XMS_ITS | Patient Health Record ---
Author Organization [facility] Address [address] [place] [address] Care Team Providers Care Routing Equipment Tender Name Role Phone Stefan Olvera Primary Care Provider Unavailab Brian Martinez Unavailable [phone] Allergies Allergen (clinical drug ingredient) Drug/Non Drug Allergy documented on EMR Reaction Allergy Type Onset Date Status Penicillin Unknown Drug Allergy Active Reason For Referral No Information Medications Medication [...] Problem Status W/U Status Risk Notes Problem 110300345 Encounter for screening for malignant neoplasm of colon (Z12.11) Active confirmed Problem 073062008 History of adenomatous polyp of colon (Z86.010) Active confirmed Problem History of polyp of colon (situation) (518998129) Personal history of colonic polyps (Z86.010) Active confirmed Problem History of gastrointestinal tract bypass (138629474) Intestinal bypass and anastomosis status (Z98.0) Active confirmed Problem 525709983 Fatty liver (K76.0) Active confirmed Problem 802374555 Gastroesophageal reflux disease, esophagitis presence not specified (K21.9) Active confirmed Problem 884963966 Family history o f colon cancer (Z80.0) Active confirmed Plan Of Treatment Pending Test Test Name Order Date LIVER PROFILE 08/29/2012 LIVER PROFILE 03/31/2024 LIVER PROFILE 08/27/2012 HEPATITIS B SURFACE ANTIGEN 05/30/2012 Future Test Test Name Order Date COLONOSCOPY 03/03/2013 UPPER GI ENDOSCOPY 11/06/2018 COLONOSCOPY 11/06/2018 COLONOSCOPY 03/31/2024 Insurance Providers Payer Name Payer Address Payer Phone Subscriber Number Group Number Insured Name Patient Relationship to Insured Coverage Start Date Coverage End Date [facility] [address] [place] [address] [id number] CHAVEZ IIIPRIMO(Gene KHANNA) Self - patient is the insured Medical (General) History Medical History History ICD Code Tubular adenomas-removed in 04/2008 and Diverticulitis-sigmoid resection in 08/14 02 NIDDM HTN CAD with stent placement in 2006-denies [place], no subsequent cardiac problems Denies AR,CVA,Lung disease,renal disease BPH Hyperlipidemia Sleep apnea--not using [...]
== END 2025-08-24 17:12 | disposition home or self-care (01) ==
LOC: HO.HMCFM 16:28
PROVIDERS: PCP Family Medicine; Visit Provider Family Medicine
DX: E78.5 Hyperlipidemia, unspecified (principal); I25.10 Atherosclerotic heart disease of native coronary artery without angina pectoris; R74.8 Abnormal levels of other serum enzymes; D64.9 Anemia, unspecified; D69.6 Thrombocytopenia, unspecified

== ENCOUNTER 2025-09-28 10:25 | Outpatient (AMB) | payer MEDICARE, SELFPAY ==
--- OUTSIDE RECORDS SUMMARY | 2024-08-10 03:30 | XMS_ITS ---
Author Organization [facility] Address [address] [place] [address] Care Team Providers Care Patent Attorney Name Role Phone Stefan Olvera Primary Care Provider Unavailab Brian Martinez Unavailable [phone] REASON FOR VISIT screening,hx polyps,fam hx colon ca Problems Problem Type SNOMED Code ICD Code Onset Dates Problem Status W/U Status Risk Notes Problem History of polyp of colon (situation) (980805216) Personal history of colonic polyps (Z86.010) Active confirmed Problem History of gastrointestinal tract bypass (379015447) Intestinal bypass and anastomosis status (Z98.0) Active confirmed Encounters Encounter Location Date Provider Diagnosis [facility] [place] Outpatient [address] [place], [place] [id number] 08/10/2024 Brian Bryson Colon cancer scree evelyn Z12.11 ; Personal history of colonic polyps Z86.010 ; Family history of colon cancer Z80.0 ; Intestinal bypass and anastomosis status Z98.0 and Other hemorrhoids K64.8 Assessments Encounter Date Diagnosis (ICD Code) Assessment Notes Treatment Notes Treatment Clinical Notes Section Notes 08/10/2024 Colon cancer screening (ICD-10 - Z12.11) 08/10/2024 Personal history of colonic polyps (ICD-10 - Z86.010) 08/10/2024 Family history of colon cancer (ICD-10 - Z80.0) 08/10/2024 Intestinal bypass and anastomosis status (ICD-10 - Z98.0) 08/10/2024 Other hemorrhoids (ICD-10 - K64.8) Plan Of Treatment No Information Progress Notes * PRIMO CHAVEZ III(TYLER) P :1955 (70 yo M)Acc No.[id number]:08/10/2024 COLON WITH MAC Patient: PRIMO GOLD III(NAYELI) P Provider: Maria L Bryson MD :1955 A ge:69 Y S ex:Male Date:08/10/2024 Address:[address] [place] [address], [id number] Pcp:Stefan Olvera Subjective: * Chief Complaints: * 1 . Screening,hx polyps,fam hx colon ca. * Medical History: Objective: * Vitals: Assessment: * Assessment: 1. C olon cancer screening - Z12.11 (Primary) 2 . P ersonal history of colonic polyps - Z86.010 3 . F amily history of colon cancer - Z80.0 ?4. I ntestinal bypass and anastomosis status - Z98.0 5 . O ther hemorrhoids - K64.8 Plan: * Treatment: * Procedure Codes: G 0105 COLOREC CANCR SCR; COLNSCPY HI RISK, 0529F INTRVL 3+YRS PTS CLNSCP DOCD, Modifiers: 8P , 0528F RCMND FLW-UP 10 YRS DOCD, Modifiers: 1P * Preventive Medicine: [place] Screening: C olonoscopy W as interval between colonoscopies three years or more? Y es, W as last colonoscopy performed three or more years ago? Y es. * * The named appointment provid er may or may not be the originator of this progress note, and it is not deemed complete until electronically signed by the appointment provider. Sign off status: Pending * Provider: Maria L Bryson MD Date: 0 08/10/2024 Generated for Melvin newsome/Dale/eTransmitting on: 11/28/2024 12:11 PM EST
--- NOTE | 2025-09-28 10:41 | MHC.OFFVIS ---
Intake Visit Reasons: Urinary retention Intake Note: New Patient is present for urinary retention Urology Rx:Sildenafil, Tamsulosin PVR:571 MLS Blood Thinners:none Imaging completed:none Grain Operator Required: No Accompanied by: Self / Same As Patient Allergies penicillin V Allergy (Severe, Verified 09/28/25 10:42) hives,anaphylaxis bee pollen (BEE STINGS) Allergy (Unknown, Verified 09/28/25 10:42) SWELLING HPI Comments Details: Rao is a pleasant male. He is a patient of Dr. Olvera. 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 PFSH Medical History Diverticulitis Fatty liver GERD (gastroesophageal reflux disease) Sleep apnea Hyperlipidemia Diabetes HTN (hypertension) CAD (coronary artery disease) Surgical History Hx of nasal septoplasty Hx of hand surgery Hx of knee surgery History of esophagogastroduodenoscopy (EGD) H/O colonoscopy Hx of heart artery stent History of colectomy History of appendectomy History of back surgery Social History (Updated 08/24/25 @ 16:26 by Claudia Doherty CMA) Household Members: Spouse Housing: House Alcohol intake: current Alcohol intake frequency: a few times a month Patient Tobacco Use Status: Former Tobacco user Tobacco use type: Cigarette e-Cigarette/Vaping Use: Never Used Second Hand Smoke Exposure: No service: Yes Current occupational status: employed Current occupation: machine shop Current occupational exposures/hazards: No Cognitive needs: No Hearing needs: No Vision needs: No Review of Systems Const Denies chills and Denies fever(s) Card Reports no additional complaints and Denies syncope Resp Denies cough GI Denies abdominal pain and Denies heartburn Reports as per HPI and Denies change in libido Neuro Denies syncope Psych Denies change in libido Endo Denies change in libido Physical Exam Const General: cooperative, healthy appearing, comfortable and no acute distress Orientation/consciousness: patient oriented x3 HEENT Face and sinus: Yes normal facial exam Mouth: moist mucous membranes Neck Neck: Yes normal visual inspection, Yes full ROM and Yes trachea midline Chest Chest palpation & inspection: normal inspection of the chest Resp Effort & Inspection: normal respiratory effort, able to speak in complete sentences and no respiratory distress GI Inspection: Yes normal to inspection Back/Spine/Pelvis Cervical Spine: normal cervical lordosis Thoracic/Lumbar Spine: thoracic and lumbar spine normal to inspection Skin General skin exam: no rashes or lesions noted Neuro General: patient oriented x3, gait normal, tone normal and moves all extremities Extrem General: Yes normal to inspection and Yes capillary refill normal Office Procedures Post Void Residual Post Residual Void Post Void Residual (PVR): 571 [id number] Void Residual by ultrasound Results AMB Urinalysis, Automated UA Leukoctes 0 Jessa/uL Last Edit by Rosanna Gates [facility] on 09/28/25 10:53 UA Nitrite Negative Last Edit by Rosanna Gates [facility] on 09/28/25 10:53 UA Urobilinogen 0.2 mg/dL Last Edit by Rosanna Gates [facility] on 09/28/25 10:53 UA Protein 0 mg/dL Last Edit by Rosanna Gates [facility] on 09/28/25 10:53 UA pH 6.0 Last Edit by Rosanna Gates [facility] on 09/28/25 10:53 UA Blood 0 Sabas/uL Last Edit by Rosanna Gates [facility] on 09/28/25 10:53 UA Specific [place] 1.015 Last Edit by Rosanna Gates [facility] on 09/28/25 10:53 UA Ketone Negative Last Edit by Rosanna Gates [facility] on 09/28/25 10:53 UA Bilirubin 1 mg/dL Last Edit by Rosanna Gates [facility] on 09/28/25 10:53 UA Glucose 0 mg/dL Last Edit by Rosanna Gates [facility] on 09/28/25 10:53 Results Reviewed Results Reviewed: Laboratory Last Values Urine pH (Auto) 6.0 09/28/25 10:52 Specific [place] (Auto) 1.015 09/28/25 10:52 Urine Protein (Auto) 0 mg/dL 09/28/25 10:52 Glucose (UA)(Auto) 0 mg/dL 09/28/25 10:52 Urine Ketones (Auto) Negative 09/28/25 10:52 Urine Blood (Auto) 0 Sabas/uL 09/28/25 10:52 Urine Nitrite (Auto) Negative 09/28/25 10:52 Urine Bilirubin (Auto) 1 mg/dL 09/28/25 10:52 Urine Urobilinogen (Auto) 0.2 mg/dL 09/28/25 10:52 Leukocyte Esterase (Auto) 0 Jessa/uL 09/28/25 10:52 Assessment & Plan Assessment & Plan (1) Urinary retention with incomplete bladder emptying: Code(s): R33.9 - Retention of urine, unspecified Category: Medical (2) Diabetic neuropathy associated with diabetes mellitus due to underlying condition: Code(s): E08.40 - Diabetes mellitus due to underlying condition with diabetic neuropathy, unspecified Category: Medical Plan Trial bethanechol Medications: New bethanechol chloride 50 mg PO BID 60 tabs 1RF 30 days N39.0 - Urinary tract infection, site not specified, R33.9 - Retention of urine, unspecified Patient Instructions: This note is constructed using voice recognition software. While every effort has been made to ensure accuracy first aid nurse errors may have been included. Imaging studies, laboratory and physical exam results were discussed and reviewed in detail. No major barriers to patient understanding were identified. An opportunity to ask questions regarding the treatment plan was provided. All questions were answered. The patient expressed understanding and agreement with the above treatment plan. The patient is aware they should contact our office by phone for worsening of their current condition or the appearance of new urologic symptoms. Compliance is encouraged with any medications and followup testing that is ordered. It is a privilege to participate in the urologic care of your patient. If you have any questions or concerns regarding treatment for the above conditions, or other urologic issues, please do not hesitate to contact me. The office telephone contact is [phone]. Sincerely, Dr Lanre Fenton MD, [facility] - Urology Compassionate Specialist Care for the Genitourinary System Coding Level of Care Code New Pt Level 4 (66820) Diagnoses Urinary retention with incomplete bladder emptying R33.9 Diabetic neuropathy associated with diabetes mellitus due to underlying condition E08.40 CPT Codes Post Residual Void - PVR CPT Code: 29046-Efby Void Residual by ultrasound ([id number])
--- OUTSIDE RECORDS SUMMARY | 2025-09-28 12:12 | XMS_ITS | Patient Health Record ---
Author Organization [facility] Address [address] [place] [address] Care Team Providers Care Milled Rubber Tender Name Role Phone Stefan Olvera Primary Care Provider Unavailab Brian Martinez Unavailable [phone] Allergies Allergen (clinical drug ingredient) Drug/Non Drug Allergy documented on EMR Reaction Allergy Type Onset Date Status Penicillin Unknown Drug Allergy Active Reason For Referral No Information Medications Medication SIG (Take, Route, Frequency, Duration) Notes Start Date End Date Status glipiZIDE ER 10 MG 1 tablet Orally Once a day Active Chlorthalidone 25 MG TAKE ONE-HALF TABLE T BY MOUTH EVERY DAY Oral; Duration: 90 Active Omeprazole 20 MG 1 capsule Orally Onc e a day Active Trulicity 0.75 MG/0.5ML Subcutaneous; Du ration: 28 Active Lisinopril 40 MG 1 tablet Orally Once a day Active Allergy 4 MG 1 tablet as needed Orally every 6 hrs Active Metoprolol Succinate ER [...] Problem Status W/U Status Risk Notes Problem Screening for malignant neoplasm of colon (876699474) Encounter for screening for malignant neoplasm of colon (Z12.11) Active confirmed Problem History of adenomatous polyp of colon (212911862) History of adenomatous polyp of colon (Z86.010) Active confirmed Problem History of polyp of colon (situation) (903386335) Personal history of colonic polyps (Z86.010) Active confirmed Problem History of gastrointestinal tract bypass (135836615) Intestinal bypass and anastomosis status (Z98.0) Active confirmed Problem Fatty liver (856528881) Fatty liver (K76.0) Active confirmed Problem Gastroesophageal reflux disease (025230999) Gastroesophageal reflux disease, esophagitis presence not specified (K21.9) Active confirmed Problem Family History of Cancer of Colon (Situation) (609258234) Family history of colon cancer (Z80.0) Active confirmed Plan Of [...] Insured Coverage Start Date Coverage End Date [facility] [address] [place] [address] [id number] CHAVEZ PRIMO GAUTHIER(Gene KHANNA) Self - patient is the insured Medical (General) History Medical History History ICD Code Tubular adenomas-removed in 04/2008 and Diverticulitis-sigmoid resection in 08/14 02 NIDDM HTN CAD with stent placement in 2006-denies [place], no subsequent cardiac problems Denies [place],CVA,Lung disease,renal disease BPH Hyperlipidemia Sleep apnea--not using [...]
== END 2025-09-28 11:35 | disposition home or self-care (01) ==
LOC: HO.HUSH 10:25
PROVIDERS: PCP Family Medicine; Visit Provider Urology
DX: R33.9 Retention of urine, unspecified (principal); E08.40 Diabetes mellitus due to underlying condition with diabetic neuropathy, unspecified
CPT/HCPCS: 99204

== ENCOUNTER → 2025-09-28 10:25 | Outpatient (BNVA) | payer MEDICARE, SELFPAY | PROVIDERS: PCP Family Medicine; Visit Provider Urology | DX: R33.9 Retention of urine, unspecified (principal); E08.40 Diabetes mellitus due to underlying condition with diabetic neuropathy, unspecified | CPT/HCPCS: 51798; 99202 ==

== ENCOUNTER → 2025-10-18 09:41 | Outpatient (BNV) | payer MEDICARE, SELFPAY | PROVIDERS: PCP Family Medicine; Visit Provider Internal Medicine | DX: D50.9 Iron deficiency anemia, unspecified (principal); D69.6 Thrombocytopenia, unspecified; Z80.3 Family history of malignant neoplasm of breast; Z80.41 Family history of malignant neoplasm of ovary | CPT/HCPCS: 99204 ==

== ENCOUNTER 2025-11-08 09:22 | Outpatient (REF) | payer MEDICARE, SELFPAY ==
--- NOTE | ~2025-11-08 | US_ITS ---
CLINICAL HISTORY: Evaluate liver and spleen US abdomen limited Comparison: None provided Findings: The liver is hyperechoic and measures 16.9 cm. The common duct is 9 mm in diameter. No significant intrahepatic bile duct dilation. The gallbladder is normal. There is no sonographic Herrera sign. Splenomegaly (14.5 cm). No visualized ascites. IMPRESSION: 1. Hyperechoic liver, which can be seen with hepatic steatosis or other hepatocellular disease. 2. Splenomegaly (14.5 cm). 3. Extrahepatic bile duct dilation (CBD 9 mm). Correlate for biliary stasis. This document has been electronically signed by: Isaiah Alexander MD on 11/08/2025 22:26:30
== END 2025-11-08 09:23 | disposition home or self-care (01) ==
LOC: HO.HMGCX 09:22
PROVIDERS: PCP Family Medicine; Visit Provider Internal Medicine
DX: D69.6 Thrombocytopenia, unspecified (principal)
CPT/HCPCS: 76705